=== PATIENT | female | born 1990 | race Caucasian/White ===

== ENCOUNTER 2016-12-16 11:10 | Inpatient (IN) | payer MEDICAID ==
[2016-12-16] VITALS (41 sets, daily range): BP systolic 94–154; BP diastolic 53–93
[~2016-12-16] VITALS: Ht 160 cm; Wt 79.0 kg
[~2016-12-16 11:10] MED LIST: AMOX500C2 PO; CEFP250T2 PO; CYCL10TA9 PO; DOCU100C37 PO; HYDR25CA5 PO; IBUP-1780 PO; KETO75CA PO; NAPR-243 PO; NAPR550T PO; OXYC-465 PO; PREN1TAB39; PRENATAL VITAMINS
--- OUTSIDE RECORDS SUMMARY | 2016-12-16 11:28 | XMS REPORT ---
Author Author SANCHO ALVAREZ Organization [employer] Address Unknown Phone Unavailable Care Team Providers Care Supervisor [facility] Name Role Phone SANCHO ALVAREZ CP Unavailable Allergies No Known Allergies Problems Problem Type Condition ICD-9 Code Onset Dates Condition Status Assessment Asymptomatic bacteriuria during 646.50 Active Problem Asymptomatic bacteriuria during 646.50 Active Problem Supervision of normal subsequent V22.1 Active Problem Rubella non-immune status, antepartum 646.83 Active Assessment Screen for STD (sexually transmitted disease) V74.5 Active Assessment Rubella non-immune status, antepartum 646.83 Active Assessment Supervision of normal subsequent V22.1 Active Assessment Pap test, as part of routine gynecological examination V76.2 Active Medications No Known Medications Procedures Procedure Coding System Code Date CHORIONIC GONADOTROPIN TEST CPT-4 73566 Dec 19, 2014 VENIPUNCT, ROUTINE* CPT-4 20055 Dec 19, 2014 SPECIMEN HANDLING CPT-4 57890 Dec 19, 2014 No Charge CPT-4 43822 Dec 19, 2014 URINE-NO MICRO CPT-4 83054 Dec 19, 2014 INHIBIN A CPT-4 17571 Dec 19, 2014 ALPHA-FETOPROTEIN, SERUM CPT-4 73649 Dec 19, 2014 ASSAY OF ESTRIOL CPT-4 38472 Dec 19, 2014 TRICHOMONAS VAGIN, DIR PROBE CPT-4 09884 Dec 19, 2014 CULTURE, BACTERIA, OTHER CPT-4 30690 Dec 19, 2014 Office Visit, Est Pt., Level 3 CPT-4 61530 Dec 19, 2014 URINE CULTURE/COLONY COUNT CPT-4 44204 Dec 19, 2014 Vital Signs Date/Time: Dec 19, 2014 Temperature 97.3 F Weight 133.9 lbs Height 63 in BMI 23.719 Index Blood Pressure Diastolic 64 mmHg Blood Pressure Systolic 108 mmHg Cardiac Monitoring Heart Rate 74 bpm Results Name Result Date Reference Range Unit Abnormality Flag TETRA SCREEN Summary Purpose [employer] Submission
[2016-12-16] MEDS ORDERED: D5 LR IV SOLUTION 1,000 ML IV SCH (12:24)
[2016-12-16] MEDS ORDERED: LACTATED RINGERS 1,000 ML IV ONE ×2 (12:28→14:17)
[2016-12-16] MEDS ORDERED: EPIDURAL (SUFENTA 0.6MCG/ML BUPIVA 0.125%) 100 ML BAG EPI SCH ×2 (12:30→14:30)
[2016-12-16] MEDS ORDERED: NALOXONE 0.4 MG/ML 1 ML (NARCAN) VIAL IV PRN ×2 (12:30→14:30)
[2016-12-16] MEDS ORDERED: CATHETER FLUSH 10 ML SYR IV PRN (12:30)
[2016-12-16 12:41] LABS: BASOPHILS % (AUTO) 0 % (0-10); EOSINOPHILS # (AUTO) 0.1 10^3/uL (0.0-0.3); EOSINOPHILS % (AUTO) 1 % (0-10); LYMPHOCYTES # (AUTO) 1.5 X 10^3 (1.0-4.0); LYMPHOCYTES % (AUTO) 15 % (12-44); MEAN CORPUSCULAR HEMOGLOBIN 30 PG (25-34); MEAN CORPUSCULAR HGB CONC 32 G/DL (32-36); MEAN CORPUSCULAR VOLUME 92 FL (80-99); MEAN PLATELET VOLUME 10.2 FL (7.4-10.4); MONOCYTES # (AUTO) 0.5 X 10^3 (0.0-1.0); MONOCYTES % (AUTO) 5 % (0-12); NEUTROPHILS # (AUTO) 7.7 X 10^3 (1.8-7.8); NEUTROPHILS % (AUTO) 79 % (42-75); PLATELET COUNT 225 10^3/uL (130-400); RED BLOOD COUNT 3.72 10^6/uL (4.35-5.85); RED CELL DISTRIBUTION WIDTH 14.9 % (10.0-14.5); WHITE BLOOD COUNT 9.8 10^3/uL (4.3-11.0)
[2016-12-16] MEDS ORDERED: LIDOCAINE/EPI 1%-1:200,000 (XYLOCAINE) 30 ML VIAL ONE (12:48)
[2016-12-16] MEDS ORDERED: BUPIVACAINE 0.25% 30 ML (SENSORCAINE) VIAL ONE (12:48)
[2016-12-16] MEDS ORDERED: fentaNYL INJECTION 100 MCG/2 ML AMP ONE ×2 (12:48→14:02)
[2016-12-16] MEDS ORDERED: METOCLOPRAMIDE INJ 10 MG/2 ML (REGLAN) IV PRN (14:30)
[2016-12-16] MEDS ORDERED: ONDANSETRON 4 MG/2 ML (SDV) Z0FRAN IV PRN (14:30)
[2016-12-16] MEDS ORDERED: fentaNYL INJECTION 100 MCG/2 ML AMP INJ ONE (14:30)
[2016-12-16] MEDS ORDERED: diphenhydrAMINE 50 MG/ML INJ (BENADRYL) IV PRN (14:30)
[2016-12-16] MEDS ORDERED: OXYTOCIN/NORMAL SALINE 500 ML IV SCH (14:40)
[2016-12-16] MEDS ORDERED: TETANUS,DIPTH,PERTUSS P/F (BOOSTRIX) 0.5 ML VIAL IM ONE (14:45)
[2016-12-16] MEDS ORDERED: BENZOCAINE/MENTHOL (DERMOPLAST) 56 ML CAN TP PRN (14:45)
[2016-12-16] MEDS ORDERED: MEASLES,MUMPS,RUBELLA 1 EA INJ SC ONE (14:45)
--- NOTE | 2016-12-16 14:46 | History & Physical ---
History and Physical Date Seen by Provider: Dec 16, 2016 Time Seen by Provider: 14:43 this patient is a 26-year-old white female with an EDC of January 16, 2017: 37 weeks gestation. She was seen in clinic where she was found cesar every 2 minutes. Her cervix had dilated to 4 cm from the 2 cm she was 3-4 days ago. She been followed with serial ultrasounds secondary to oligohydramnios. Last DICK was 86 prior to that was 76. She was sent to labor and delivery because of her contractions. GBS culture done on December 05 at 35 weeks and 3 days was negative. Allergies are none Medications are vitamins Past medical history, past surgical history, obstetric history, family history, and social histories are per the antepartum record HEENT exam is normal Neck is supple no lymphadenopathy no thyromegaly Abdomen is gravid soft nontender nondistended Extremities show no clubbing or cyanosis. There is no Homans sign. Pelvic exam in clinic showed a cervix 4-5 similar dilated 50 percent effaced -1 station, recheck now shows cervix 5-6 and dilated -1 station with intact bag is ruptured releasing a small amount of clear fluid. The presentation is vertex. Laboratory Tests 12/16/16 12:10 assessment and plan 7 week gestation in a patient with oligohydramnios mild at this point and in labor. She's now been admitted an epidural and placed amniotomy performed and we are anticipating vaginal delivery fairly shortly 37 weeks with oligohydramnios in spontaneous labor Allergies and Home Medications Allergies Coded Allergies: No Known Drug Allergies (Unverified , 09/23/08) Home Medications Amoxicillin 500 Mg Capsule, 1,000 MG PO BID, #40 Prescribed by: MICKEY FREITAS on 05/20/15 1525 Docusate Sodium 100 Mg Capsule, 100 MG PO BID, #60 Prescribed by: LEXY CRANE on 05/27/15 1013 Ibuprofen 800 Mg Tablet, 800 MG PO Q6H, #60 Prescribed by: LEXY CRANE on 05/27/15 1013 Oxycodone HCl/Acetaminophen 1 Each Tablet, 1-2 TAB PO Q4H PRN for PAIN, #60 Prescribed by: LEXY CRANE on 05/27/15 1013 [ Vitamins] , DAILY, (Reported) LEXY BHATIA MD Dec 16, 2016 2:46 pm
[2016-12-16] MEDS: KETOROLAC 30 MG/ML VIAL IV SCH (20:15)
--- NOTE | 2016-12-16 23:55 | OPERATIVE REPORT ---
DATE OF SERVICE: 12/16/2016 Patient delivered by term spontaneous vaginal delivery of viable female with Apgars of 9 and 9 at 1 and 5 minutes, respectively. Weight is pending at this time. time was 1737. Cord blood gas is pending. Amniotic fluid was port wine consistent with suspicion for placental abruption. The was bulb suctioned on delivery of the head and again on completion of the delivery. The umbilical cord was doubly clamped and father cut the cord. The baby was passed to mom's abdomen. Cord bloods were obtained including an arterial sample for blood gas. That lab is pending. The placenta delivered promptly spontaneously, partially Schultze and partially Martines with adherent clot and a fairly significant amount of blood, extramembranous. The placenta was sent to pathology for permanent section. The cervix, vagina, rectum, perineum were examined. There was an approximately 1.5 cm posterior fourchette perineal laceration that was repaired with a single suture of 3-0 Vicryl in the usual manner. This was repaired onto the epidural. Estimated blood loss for the delivery was less than 150 mL. Sponge and needle counts were correct on completion of the delivery and the repair. The baby remained in the LDR with the mom, who remained in the LDR for recovery. Job ID: [id number] DocumentID: [id number] Dictated Date: 12/16/2016 17:54:50 Certified Forklift Operator Date: 12/16/2016 23:54:42 Dictated By: LEXY BHATIA MD
[2016-12-17 01:58] VITALS: BP 123/76
[2016-12-17] MEDS: CATHETER FLUSH 10 ML SYR IV SCH ×4 (01:58→15:43)
[2016-12-17] MEDS: KETOROLAC 30 MG/ML VIAL IV SCH ×2 (01:58→12:25)
[2016-12-17 05:15] VITALS: BP 125/80
[2016-12-17 07:38] VITALS: BP 132/80
[2016-12-17] MEDS: oxyCODONE/APAP 10/325MG (PERCOCET 10) TABLET PO PRN ×3 (07:38→21:28)
--- NOTE | 2016-12-17 07:51 | Progress Note-Standard ---
Standard Progress Note Progress Notes/Assess & Plan Date Seen by Provider: Dec 17, 2016 Time Seen by Provider: 07:50 Progress/Assessment & Plan patient is without complaint. She is ambulating, voiding, tolerating by mouth well, denies chest pain, denies shortness of breath, denies nausea vomiting, denies headache. Patient considering discharge home today Vital Signs Date Time Temp Pulse Resp B/P (MAP) Pulse Ox O2 Delivery O2 Flow Rate FiO2 12/17/16 07:38 97.7 84 18 132/80 96 12/17/16 05:15 97.8 78 20 125/80 97 Room Air 12/17/16 01:58 97.7 78 18 123/76 98 Room Air 12/16/16 22:00 98.8 88 18 125/79 97 Room Air 12/16/16 20:45 82 20 124/71 Room Air 12/16/16 20:12 98.9 93 18 124/76 Room Air 12/16/16 19:52 94 18 128/76 Room Air 12/16/16 19:32 96 18 119/72 Room Air 12/16/16 19:12 88 18 121/81 Room Air 12/16/16 18:48 99.3 89 122/73 12/16/16 18:33 99.2 85 20 124/73 12/16/16 18:15 99.1 88 20 125/66 12/16/16 18:00 99.0 85 20 127/66 12/16/16 17:45 98.8 98 18 116/59 12/16/16 15:30 74 18 128/81 98 Room Air 12/16/16 15:15 86 16 154/60 99 Room Air 12/16/16 15:05 84 16 115/78 98 Room Air 12/16/16 14:55 74 18 117/76 92 Room Air 12/16/16 14:45 99.0 85 18 106/68 97 Room Air 12/16/16 14:40 78 18 110/67 96 Room Air 12/16/16 14:35 80 18 110/67 93 Room Air 12/16/16 14:30 77 20 103/59 97 Room Air 12/16/16 14:20 80 20 114/57 97 Room Air 12/16/16 14:15 63 20 114/66 92 Room Air 12/16/16 14:10 61 20 100/56 98 Room Air 12/16/16 14:07 60 20 94/53 97 Room Air 12/16/16 14:00 78 18 131/93 99 Room Air 12/16/16 13:45 78 18 127/89 12/16/16 13:30 74 18 127/87 12/16/16 13:15 80 18 124/85 12/16/16 13:00 75 18 122/84 12/16/16 12:50 78 18 127/84 12/16/16 12:30 78 18 114/79 12/16/16 11:30 99.0 77 18 135/84 I & O 12/17/16 07:00 Intake Total 500 ml Balance 500 ml Vital signs are stable. Patient is afebrile. Fundus is firm below the umbilicus nontender. Extremities show clubbing cyanosis. There is no Homans sign. There is some pretibial pitting edema that is normal. Assessment and plan day number 1 status post term spontaneous vaginal delivery doing well. Plan is for discharge home today or tomorrow as desired by patient Final Diagnosis 37 week spontaneous vaginal delivery with placental abruption LEXY BHATIA MD Dec 17, 2016 7:51 am
[2016-12-17] MEDS ORDERED: OXYC-465 PO (07:53)
[2016-12-17] MEDS ORDERED: IBUP-1780 PO (07:53)
[2016-12-17] MEDS ORDERED: DOCU100C37 PO (07:53)
--- NOTE | 2016-12-17 07:54 | Discharge Instructions ---
Discharge Instructions Discharge Medications New, Converted or Re-Newed RX: RX on Chart Patient Instructions Patient Instructions: as directed Return to [facility] For: as directed Activity & Diet Discharge Diet: No Restrictions Activity as Tolerated: No Orders-Post D/C & Referrals Follow Up Appt: Call to make follow up appt. for patient in 4 weeks. Activity Per routine post vaginal delivery instructions. Please call in RX to patient pharmacy. Diet as tolerated Patient may shower or tub bathe as desired. LEXY BHATIA MD Dec 17, 2016 7:54 am
--- NOTE | 2016-12-17 10:38 | Anesthesia-Regional Post-Op ---
Regional Patient Condition Mental Status: Alert, Oriented x3 Circulation: Same as Pre-Op Headache: Absent Sensation: Full Recovery Motor Block: Absent Post Op Complications Complications None Follow Up Care/Instructions Patient Instructions None needed. Anesthesia/Patient Condition Patient is doing well, no complaints, stable vital signs, no apparent adverse anesthesia problems. No complications reported per nursing. ABDULLAHI ROBERTSON CRNA Dec 17, 2016 10:38
[2016-12-17 12:00] VITALS: BP 119/75
[2016-12-17] MEDS: DOCUSATE SODIUM 100 MG (COLACE) CAP PO SCH ×2 (12:28→21:27)
[2016-12-17] MEDS ORDERED: TETANUS,DIPTH,PERTUSS P/F (BOOSTRIX) 0.5 ML VIAL IM ONE (12:33)
[2016-12-17] MEDS: IBUPROFEN 800 MG (MOTRIN) TAB PO SCH ×2 (15:41→21:27)
[2016-12-17 16:00] VITALS: BP 111/76
[2016-12-17 21:28] VITALS: BP 129/83
[2016-12-18 04:09] VITALS: BP 113/68
[2016-12-18] MEDS: IBUPROFEN 800 MG (MOTRIN) TAB PO SCH ×2 (04:09→10:38)
--- NOTE | 2016-12-18 07:05 | Progress Note-Standard ---
Standard Progress Note Progress Notes/Assess & Plan Date Seen by Provider: Dec 18, 2016 Time Seen by Provider: 07:04 Progress/Assessment & Plan patient is without complaint. She is ambulating, voiding, tolerating by mouth well, denies chest pain, denies shortness of breath, denies nausea vomiting, denies headache. Patient considering discharge home today Vital Signs Date Time Temp Pulse Resp B/P (MAP) Pulse Ox O2 Delivery O2 Flow Rate FiO2 12/17/16 07:38 97.7 84 18 132/80 96 12/17/16 05:15 97.8 78 20 125/80 97 Room Air 12/17/16 01:58 97.7 78 18 123/76 98 Room Air 12/16/16 22:00 98.8 88 18 125/79 97 Room Air 12/16/16 20:45 82 20 124/71 Room Air 12/16/16 20:12 98.9 93 18 124/76 Room Air 12/16/16 19:52 94 18 128/76 Room Air 12/16/16 19:32 96 18 119/72 Room Air 12/16/16 19:12 88 18 121/81 Room Air 12/16/16 18:48 99.3 89 122/73 12/16/16 18:33 99.2 85 20 124/73 12/16/16 18:15 99.1 88 20 125/66 12/16/16 18:00 99.0 85 20 127/66 12/16/16 17:45 98.8 98 18 116/59 12/16/16 15:30 74 18 128/81 98 Room Air 12/16/16 15:15 86 16 154/60 99 Room Air 12/16/16 15:05 84 16 115/78 98 Room Air 12/16/16 14:55 74 18 117/76 92 Room Air 12/16/16 14:45 99.0 85 18 106/68 97 Room Air 12/16/16 14:40 78 18 110/67 96 Room Air 12/16/16 14:35 80 18 110/67 93 Room Air 12/16/16 14:30 77 20 103/59 97 Room Air 12/16/16 14:20 80 20 114/57 97 Room Air 12/16/16 14:15 63 20 114/66 92 Room Air 12/16/16 14:10 61 20 100/56 98 Room Air 12/16/16 14:07 60 20 94/53 97 Room Air 12/16/16 14:00 78 18 131/93 99 Room Air 12/16/16 13:45 78 18 127/89 12/16/16 13:30 74 18 127/87 12/16/16 13:15 80 18 124/85 12/16/16 13:00 75 18 122/84 12/16/16 12:50 78 18 127/84 12/16/16 12:30 78 18 114/79 12/16/16 11:30 99.0 77 18 135/84 I & O 12/17/16 07:00 Intake Total 500 ml Balance 500 ml Vital signs are stable. Patient is afebrile. Fundus is firm below the umbilicus nontender. Extremities show clubbing cyanosis. There is no Homans sign. There is some pretibial pitting edema that is normal. Assessment and plan day number 1 status post term spontaneous vaginal delivery doing well. Plan is for discharge home today or tomorrow as desired by patient December 18 2016 Patient is without complaint, she is ambulating, voiding, tolerating fairly well , has good pain control, is requesting discharge home. Vital Signs Date Time Temp Pulse Resp B/P (MAP) Pulse Ox O2 Delivery O2 Flow Rate FiO2 12/18/16 04:09 97.0 75 18 113/68 98 Room Air 12/17/16 21:28 97.8 77 18 129/83 98 Room Air 12/17/16 16:00 97.4 71 18 111/76 95 Room Air 12/17/16 12:00 97.4 71 17 119/75 95 Room Air 12/17/16 07:38 97.7 84 18 132/80 96 vital signs are stable. Patient is afebrile. Fundus firm below the umbilicus and nontender. Extremities show no clubbing cyanosis. There is no Homans sign. Assessment and plan day number 2 status post term spontaneous vaginal delivery doing well. Plan is to discharge home with follow-up in clinic. Final Diagnosis 37 week spontaneous vaginal delivery LEXY BHATIA MD Dec 18, 2016 7:05 am
[2016-12-18 07:42] VITALS: BP 114/70
[2016-12-18] MEDS: DOCUSATE SODIUM 100 MG (COLACE) CAP PO SCH (08:04)
[2016-12-18] MEDS: oxyCODONE/APAP 10/325MG (PERCOCET 10) TABLET PO PRN (08:04)
== END 2016-12-18 13:05 | disposition home or self-care (01) | DRG 774 ==
LOC: LDRP 11:10
PROVIDERS: ADMIT Obstetrics & Gynecology; ATTEND Obstetrics & Gynecology
PROC: 10E0XZZ Delivery of Products of Conception, External Approach (ICD-10-PCS; principal; 2016-12-16)
PROC: 0HQ9XZZ Repair Perineum Skin, External Approach (ICD-10-PCS; 2016-12-16)
DX: O41.03X0 Oligohydramnios, third trimester, not applicable or unspecified (principal); O45.93 Premature separation of placenta, unspecified, third trimester; O70.0 First degree perineal laceration during delivery; Z37.0 Single live birth; Z3A.37 37 weeks gestation of pregnancy; Z23 Encounter for immunization
CPT/HCPCS: 36415; 85025; 86850; 86900; 86901; 90715

== ENCOUNTER → 2017-10-17 | Outpatient (CLI) | payer MEDICAID ==
--- NOTE | 2017-10-17 12:02 | Diagnostic Imaging Report ---
PROCEDURE: CT head without contrast. TECHNIQUE: Multiple contiguous axial images were obtained through the brain without the use of intravenous contrast. INDICATION: Right-sided headache. Comparison is made with prior CT brain from 05/15/2009. The ventricles and sulci are within normal limits. No sulcal effacement, midline shift or hemorrhage is detected. Cisterns are patent. Visualized paranasal sinuses are clear. IMPRESSION: No acute intracranial process is detected. Dictated by: Dictated on workstation # [id number]
== END ==
LOC: RAD 11:31
PROVIDERS: ATTEND Nurse Practitioner Family
DX: G44.52 New daily persistent headache (NDPH) (principal)
CPT/HCPCS: 70450

== ENCOUNTER 2018-12-13 15:57 | Emergency (ER) | payer MEDICAID ==
[~2018-12-13] VITALS: Ht 160 cm; Wt 59.1 kg
[2018-12-13 16:41] LABS: BILIRUBIN,URINE NEGATIVE (NEGATIVE); CLARITY,URINE SLIGHTLY CLOUDY; COLOR,URINE YELLOW; GLUCOSE, URINE (UA) NEGATIVE (NEGATIVE); KETONES,URINE NEGATIVE (NEGATIVE); LEUKOCYTE ESTERASE ,URINE 1+ (NEGATIVE); NITRITE,URINE NEGATIVE (NEGATIVE); PH,URINE 7 (5-9); PROTEIN,URINE 1+ (NEGATIVE); UROBILINOGEN,URINE NORMAL (NORMAL)
[2018-12-13 16:50] LABS: AMORPHOUS SEDIMENT,UR MOD AMOR URATES /LPF; BACTERIA,URINE NEGATIVE /HPF; WBC,URINE 0-2 /HPF
--- NOTE | 2018-12-13 17:33 | ED General ---
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 patient reports having similar episodes before. patient denies anything making pain better or worse. Nursing Sepsis Screen: No Definite Risk Source of Information: Patient, Other (significant other) Exam Limitations: No Limitations History of Present Illness Date Seen by Provider: Dec 13, 2018 Time Seen by Provider: 17:25 Initial Comments 28-year-old female patient presents to the emergency department with complaints of left lateral rib pain radiating into the left upper back/posterior shoulder and into the left neck for proximally 2 hours prior to arrival. Patient now states pain has resolved completely. Reports intermittently pain will cause n umbness and tingling into the left upper extremity. Reports episodes have been occurring since September. She is currently seeing Dr. Putnam for the symptoms. Patient reports that they believe symptoms are related to anxiety and stress, but is working her up for cardiac causes as well. Patient is scheduled for an echocardiogram at [facility] in [place] on Friday. Timing/Duration: Gone Now, Other (intermittent episodes since September) Modifying Factors: worse with Other (Denies modifying factors.) Allergies and Home Medications Allergies Coded Allergies: No Known Drug Allergies (Unverified , 09/23/08) Home Medications Docusate Sodium 100 Mg Capsule, 100 MG PO BID Prescribed by: LEXY CRANE on 12/17/16 075 Ibuprofen 800 Mg Tablet, 800 MG PO Q6H Prescribed by: LEXY CRANE on 12/17/16 075 Oxycodone HCl/Acetaminophen 1 Each Tablet, 1-2 TAB PO Q4H PRN for PAIN Prescribed by: LEXY CRANE on 12/17/16 075 [ Vitamins] , DAILY, (Reported) Patient Home Medication List Home Medication List Reviewed: Yes Review of Systems Review of Systems Constitutional: No chills, No diaphoresis, No dizziness, No fever, No malaise, No weakness EENTM: no symptoms reported Respiratory: No cough, No dyspnea on exertion, No hemoptysis, No orthopnea, No phlegm, No short of breath, No stridor, No wheezing Cardiovascular: No chest pain, No edema, No palpitations, No syncope Gastrointestinal: No abdominal pain, No constipation, No diarrhea, No hematemesis, No heartburn, No loss of appetite, No melena, No nausea, No vomiting Genitourinary: no symptoms reported Musculoskeletal: no symptoms reported (denies current symptoms) Skin: no symptoms reported Psychiatric/Neurological: No Symptoms Reported All Other Systems Reviewed Negative Unless Noted: Yes (Negative excepted noted.) Past Oviumfz-Egytvs-Yjytuy Hx Past Med/Social Hx: Reviewed Nursing Past Med/Soc Hx Patient Social History Alcohol Use: Occasionally Uses Recreational Drug Use: No Smoking Status: Current Everyday Smoker Recent Foreign Travel: No Contact w/Someone Who Travel: No Recent Infectious Disease Expo: No Recent Hopitalizations: No Immunizations Up To Date Tetanus Booster (TDap): Unknown PED Vaccines UTD: Yes Seasonal Allergies Seasonal Allergies: No Past Medical History Surgeries: Yes (METAL PLATE IN SIDE OF JAW.) Respiratory: No Cardiac: No Neurological: No Headaches /Migraines Reproductive Disorders: No Genitourinary: No Gastrointestinal: Yes Gastroesophageal Reflux Musculoskeletal: No Endocrine: No HEENT: No Cancer: No Psychosocial: No Integumentary: No Blood Disorders: No Adverse Reaction/Blood Tranf: No Family Medical History Reviewed Nursing Family Hx Cervical cancer 19 MOTHER No Pertinent Family Hx Physical Exam Vital Signs Vital Signs - First Documented 12/13/18 16:06 Temp 98.2 Pulse 84 Resp 18 B/P (MAP) 116/85 (95) Pulse Ox 97 Capillary Refill : Less Than 3 Seconds Height, Weight, BMI Height: 5'3.00" Weight: 130lbs. 4.0oz. 59.500761kl; 30.9 BMI Method:Stated General Appearance: No Apparent Distress, WD/WN HEENT: PERRL/EOMI, Pharynx Normal Neck: Full Range of Motion, Normal Inspection, Non Tender, Supple; No Tender Lateral, No Tender Midline Respiratory: Chest Non Tender (unable to reproduce pain at the time of exam), Lungs Clear, Normal Breath Sounds, No Accessory Muscle Use, No Respiratory Distress Cardiovascular: Regular Rate, Rhythm, No Edema, No Gallop, No JVD, No Murmur, Normal Peripheral Pulses Gastrointestinal: Normal Bowel Sounds, No Organomegaly, No Pulsatile Mass, Non Tender, Soft Back: Normal Inspection, No Vertebral Tenderness, Muscle Spasm (bilat thoracic paraspinous muscle spasm without tenderness.) Extremity: Normal Capillary Refill, No Calf Tenderness, No Pedal Edema Neurologic/Psychiatric: Alert, Oriented x3, No Motor/Sensory Deficits, Normal 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, 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 Norm as Tested Skin: Normal Color, Warm/Dry Progress/Results/Core Measures Suspected Sepsis Recent Fever Within 48 Hours: No Infection Criteria Present: None New/Unexplained Altered Menta: No Sepsis Screen: No Definite Risk SIRS Temperature:98.2 Pulse: 84 Respiratory Rate: 18 Blood Pressure 116 /85 Mean: 95 Results/Orders Lab Results Laboratory Tests Test 12/13/18 16:31 Range/Units Urine Color YELLOW Urine Clarity SLIGHTLY CLOUDY Urine pH 7 5-9 Urine Specific [place] 1.010 L 1.016-1.022 Urine Protein 1+ H NEGATIVE Urine Glucose (UA) NEGATIVE NEGATIVE Urine Ketones NEGATIVE NEGATIVE Urine Nitrite NEGATIVE NEGATIVE Urine Bilirubin NEGATIVE NEGATIVE Urine Urobilinogen NORMAL NORMAL MG/DL Urine Leukocyte Esterase 1+ H NEGATIVE Urine RBC (Auto) NEGATIVE NEGATIVE Urine RBC NONE /HPF Urine WBC 0-2 /HPF Urine Squamous Epithelial Cells 5-10 /HPF Urine Crystals NONE /LPF Urine Amorphous Sediment MOD TRINA URATES H /LPF Urine Bacteria NEGATIVE /HPF Urine Casts NONE /LPF Urine Mucus NEGATIVE /LPF Urine Culture Indicated NO My Orders Orders - ELVIA PINTO Ua Culture If Indicated (12/13/18 16:13) Urine Bedside (12/13/18 16:13) Vital Signs/I&O 12/13/18 16:06 Temp 98.2 Pulse 84 Resp 18 B/P (MAP) 116/85 (95) Pulse Ox 97 Capillary Refill : Less Than 3 Seconds Blood Pressure Mean: 95 Departure Communication (Admissions) Patient seen and evaluated. Patient denies symptoms at this time. I discussed proceeding with labs, chest x-ray, and EKG versus discharge to home with follow- up early this week with Dr. Putnam. Patient states that she would like to follow- up with Dr. Putnam and proceed with the outpatient echocardiogram as scheduled at [facility] on Friday. I have instructed patient to return immediately to the emergency department for recurrent symptoms or any other concerns. Patient verbalizes understanding and agrees with the treatment plan. Patient case discussed with Dr. Solomon, he agrees with the plan of care. Impression Primary Impression: Chest wall pain Disposition: HOME, SELF-CARE Condition: Improved Departure-Patient Inst. Decision time for Depature: 17:32 Referrals: ELIF PUTNAM MD (PCP/Family) Primary Care Physician Patient Instructions: Chest Pain (DC) Add. Discharge Instructions: All discharge instructions reviewed with patient and/or family. Voiced understanding. Continue orders and instructions as per Dr. Putnam. Tylenol or ibuprofen [id number] as directed for pain if needed. Follow-up with Dr. Putnam this week for recheck. Call Friday morning for an appointment time. Return to the emergency department for worsened symptoms, shortness of air, dizziness, palpitations, numbness, or any other concerns. ELVIA PINTO Dec 13, 2018 17:33
[2018-12-13 17:44] VITALS: BP 120/88
== END 2018-12-13 17:44 | disposition home or self-care (01) ==
LOC: EDUNIT# 15:57 → ER 15:58
DX: R07.89 Other chest pain (principal); G43.909 Migraine, unspecified, not intractable, without status migrainosus; K21.9 Gastro-esophageal reflux disease without esophagitis; F41.9 Anxiety disorder, unspecified; F17.200 Nicotine dependence, unspecified, uncomplicated; Z80.8 Family history of malignant neoplasm of other organs or systems
CPT/HCPCS: 81000; 84703; 99283

== ENCOUNTER 2019-06-08 16:09 | Emergency (ER) | payer MEDICAID ==
[~2019-06-08] VITALS: Ht 160 cm; Wt 76.7 kg
[2019-06-08] MEDS ORDERED: BALO40TA PO (17:16)
--- NOTE | 2019-06-08 17:16 | ED Cough/URI ---
General Chief Complaint: Cough/Cold/Flu Symptoms Stated Complaint: HEADACHE,FEVER,CONGESTED Nursing Triage Note: COUGH CONGESTION HEADACHE ONSET YESTERDAY. DAUGHTER TESTED POS FLU Sepsis Screen: No Definite Risk Source: patient Exam Limitations: no limitations History of Present Illness Date Seen by Provider: Jun 08, 2019 Time Seen by Provider: 17:14 Initial Comments ER with headache cough congestion since yesterday. Daughter had the flu recently. Timing/Duration: yesterday Severity/Quality: moderate Associated Symptoms: cough Allergies and Home Medications Allergies Coded Allergies: No Known Drug Allergies (Unverified , 09/23/08) Home Medications Docusate Sodium 100 Mg Capsule, 100 MG PO BID Prescribed by: LEXY CRANE on 12/17/16752 Ibuprofen 800 Mg Tablet, 800 MG PO Q6H Prescribed by: LEXY CRANE on 12/17/16752 Oxycodone HCl/Acetaminophen 1 Each Tablet, 1-2 TAB PO Q4H PRN for PAIN Prescribed by: LEXY CRANE on 12/17/16752 [ Vitamins] , DAILY, (Reported) Patient Home Medication List Home Medication List Reviewed: Yes Review of Systems Review of Systems Constitutional: see HPI EENTM: see HPI Respiratory: no symptoms reported Cardiovascular: no symptoms reported Genitourinary: no symptoms reported Musculoskeletal: no symptoms reported Skin: no symptoms reported Psychiatric/Neurological: No Symptoms Reported Hematologic/Lymphatic: No Symptoms Reported Past Ibpeorl-Yyahtz-Vrrqvy Hx Patient Social History Alcohol Use: Denies Use Recreational Drug Use: No Smoking Status: Current Everyday Smoker Recent Foreign Travel: No Contact w/Someone Who Travel: No Recent Infectious Disease Expo: No Recent Hopitalizations: No Immunizations Up To Date Tetanus Booster (TDap): Unknown PED Vaccines UTD: Yes Seasonal Allergies Seasonal Allergies: No Past Medical History Surgeries: Yes (METAL PLATE IN SIDE OF JAW.) Respiratory: No Cardiac: No Neurological: No Headaches /Migraines Reproductive Disorders: No Genitourinary: No Gastrointestinal: Yes Gastroesophageal Reflux Musculoskeletal: No Endocrine: No HEENT: No Cancer: No Psychosocial: No Integumentary: No Blood Disorders: No Adverse Reaction/Blood Tranf: No Family Medical History Cervical cancer 19 MOTHER No Pertinent Family Hx Physical Exam Vital Signs - First Documented 06/08/19 16:27 Temp 37.3 Pulse 71 Resp 18 B/P (MAP) 121/78 (92) Capillary Refill : Less Than 3 Seconds Height: 5'3.00" Weight: 130lbs. 4.0oz. 59.133441ef; 29.00 BMI Method:Stated General Appearance: WD/WN, no apparent distress Eyes: Bilateral Eye Normal Inspection, Bilateral Eye PERRL, Bilateral Eye EOMI HEENT: PERRL/EOMI, normal ENT inspection Respiratory: no respiratory distress, no accessory muscle use Gastrointestinal: normal bowel sounds, non tender, soft Neurologic/Psychiatric: alert, oriented x 3 Skin: normal color, warm/dry Progress/Results/Core Measures Suspected Sepsis Recent Fever Within 48 Hours: No Infection Criteria Present: None New/Unexplained Altered Menta: No Sepsis Screen: No Definite Risk SIRS Temperature: Pulse: 71 Respiratory Rate: 18 Blood Pressure 121 /78 Mean: 92 Results/Orders My Orders Orders - SLAVA COOK APRN Influenza A And B Antigens (06/08/19 16:41) Vital Signs/I&O 06/08/19 16:27 Temp 37.3 Pulse 71 Resp 18 B/P (MAP) 121/78 (92) Capillary Refill : Less Than 3 Seconds Blood Pressure Mean: 92 Departure Impression Primary Impression: Influenza Disposition: 01 HOME, SELF-CARE Condition: Stable Departure-Patient Inst. Decision time for Depature: 17:15 Referrals: ELIF PUTNAM MD (PCP/Family) Primary Care Physician Patient Instructions: Flu Add. Discharge Instructions: 1. Return to ER for any concerns 2. Medication as directed 3. All discharge instructions reviewed with patient and/or family. Voiced understanding. Scripts Baloxavir Marboxil (Xofluza) 40 Mg Tablet 40 MG PO ONCE, #1 TAB Prov: SLAVA COOK APRN 06/08/19 Work/School Note: Work Release Form Date Seen in the Emergency Department: Jun 08, 2019 Return to Work: Jun 14, 2019 SLAVA COOK APRN Jun 08, 2019 17:16
[2019-06-08 17:20] VITALS: BP 121/78
== END 2019-06-08 17:21 | disposition home or self-care (01) ==
LOC: EDUNIT# 16:09 → ER 16:10
DX: J11.1 Influenza due to unidentified influenza virus with other respiratory manifestations (principal); F17.200 Nicotine dependence, unspecified, uncomplicated; Z85.41 Personal history of malignant neoplasm of cervix uteri
CPT/HCPCS: 87804

== ENCOUNTER 2020-04-02 16:29 | Emergency (ER) | payer MEDICAID ==
[~2020-04-02] VITALS: Ht 160 cm; Wt 79.4 kg
[~2020-04-02 16:29] MED LIST changes: +BALO40TA PO; -OXYC-465 PO; +OXYC-556 PO
[2020-04-02] MEDS ORDERED: LORazepam INJ 2 MG/ML (ATIVAN) VIAL ONE (16:38)
[2020-04-02] MEDS ORDERED: LORazepam INJ 2 MG/ML (ATIVAN) VIAL IVP PRN (16:45)
--- NOTE | 2020-04-02 16:56 | ED General ---
General Chief Complaint: General Problems/Pain Stated Complaint: NAUSEA/DIZZINESS/L ARM/HAND NUMBNESS Source of Information: Patient Exam Limitations: No Limitations History of Present Illness Date Seen by Provider: Apr 02, 2020 Time Seen by Provider: 16:54 Initial Comments To ER with nausea, dizziness, left arm shaking and numbness. She believes she is having an anxiety attack she states. She has been having these episodes with increasing frequency over the course of the past 1.5 years. Timing/Duration: 1-2 Days Severity: Moderate Associated Systoms: Denies Symptoms Allergies and Home Medications Allergies Coded Allergies: No Known Drug Allergies (Unverified , 09/23/08) Home Medications Baloxavir Marboxil 40 Mg Tablet, 40 MG PO ONCE Prescribed by: SLAVA COOK on 06/08/19 171 Docusate Sodium 100 Mg Capsule, 100 MG PO BID Prescribed by: LEXY CRANE on 12/17/16 075 Ibuprofen 800 Mg Tablet, 800 MG PO Q6H Prescribed by: LEXY CRANE on 12/17/16 075 Oxycodone HCl/Acetaminophen 1 Each Tablet, 1-2 TAB PO Q4H PRN for PAIN Prescribed by: LEXY CRANE on 12/17/16 075 [ Vitamins] , DAILY, (Reported) Patient Home Medication List Home Medication List Reviewed: Yes Review of Systems Review of Systems Constitutional: see HPI EENTM: see HPI Respiratory: no symptoms reported Cardiovascular: no symptoms reported Genitourinary: no symptoms reported Musculoskeletal: no symptoms reported Skin: no symptoms reported Psychiatric/Neurological: No Symptoms Reported Hematologic/Lymphatic: No Symptoms Reported Immunological/Allergic: no symptoms reported Past Wmndhkx-Fjrbgb-Fljipj Hx Patient Social History Recent Foreign Travel: No Contact w/Someone Who Travel: No Recent Hopitalizations: No Immunizations Up To Date Tetanus Booster (TDap): Unknown PED Vaccines UTD: Yes Seasonal Allergies Seasonal Allergies: No Past Medical History Surgeries: Yes (METAL PLATE IN SIDE OF JAW.) Respiratory: No Cardiac: No Neurological: No Headaches /Migraines Reproductive Disorders: No Genitourinary: No Gastrointestinal: Yes Gastroesophageal Reflux Musculoskeletal: No Endocrine: No HEENT: No Cancer: No Psychosocial: No Integumentary: No Blood Disorders: No Adverse Reaction/Blood Tranf: No Family Medical History Cervical cancer 19 MOTHER No Pertinent Family Hx Physical Exam Vital Signs Vital Signs - First Documented 04/02/20 16:30 Temp 36.7 Pulse 90 Resp 18 B/P (MAP) 141/92 (108) Pulse Ox 98 O2 Delivery Room Air Capillary Refill : Height, Weight, BMI Height: 5'3.00" Weight: 130lbs. 4.0oz. [id number]; 29.00 BMI Method:Stated General Appearance: No Apparent Distress, WD/WN, Anxious Eyes: Bilateral Eye Normal Inspection, Bilateral Eye PERRL HEENT: PERRL/EOMI, TMs Normal Neck: Full Range of Motion, Normal Inspection Respiratory: No Accessory Muscle Use, No Respiratory Distress Cardiovascular: Regular Rate, Rhythm, Normal Peripheral Pulses Gastrointestinal: Normal Bowel Sounds, Non Tender, Soft Extremity: Normal Capillary Refill, Normal Inspection Neurologic/Psychiatric: Alert, Oriented x3 Skin: Normal Color, Warm/Dry Progress/Results/Core Measures Suspected Sepsis SIRS Temperature: Pulse: Respiratory Rate: Laboratory Tests 04/02/20 16:30: White Blood Count 8.6 Blood Pressure / Mean: Laboratory Tests 04/02/20 16:30: Creatinine 0.81, Platelet Count 370, Total Bilirubin 0.3 Results/Orders Lab Results Laboratory Tests Test 04/02/20 16:30 Range/Units White Blood Count 8.6 4.3-11.0 10^3/uL Red Blood Count 4.54 3.80-5.11 10^6/uL Hemoglobin 13.7 11.5-16.0 g/dL Hematocrit 42 35-52 % Mean Corpuscular Volume 93 80-99 fL Mean Corpuscular Hemoglobin 30 25-34 pg Mean Corpuscular Hemoglobin Concent 33 32-36 g/dL Red Cell Distribution Width 13.3 10.0-14.5 % Platelet Count 370 130-400 10^3/uL Mean Platelet Volume 9.2 9.0-12.2 fL Immature Granulocyte % (Auto) 0 % Neutrophils (%) (Auto) 62 42-75 % Lymphocytes (%) (Auto) 29 12-44 % Monocytes (%) (Auto) 6 0-12 % Eosinophils (%) (Auto) 2 0-10 % Basophils (%) (Auto) 1 0-10 % Neutrophils # (Auto) 5.4 1.8-7.8 10^3/uL Lymphocytes # (Auto) 2.5 1.0-4.0 10^3/uL Monocytes # (Auto) 0.6 0.0-1.0 10^3/uL Eosinophils # (Auto) 0.1 0.0-0.3 10^3/uL Basophils # (Auto) 0.0 0.0-0.1 10^3/uL Immature Granulocyte # (Auto) 0.0 0.0-0.1 10^3/uL Sodium Level 138 135-145 MMOL/L Potassium Level 3.9 3.6-5.0 MMOL/L Chloride Level 101 98-107 MMOL/L Carbon Dioxide Level 25 21-32 MMOL/L Anion Gap 12 5-14 MMOL/L Blood Urea Nitrogen 10 7-18 MG/DL Creatinine 0.81 0.60-1.30 MG/DL Estimat Glomerular Filtration Rate > 60 BUN/Creatinine Ratio 12 Glucose Level 89 70-105 MG/DL Calcium Level 8.9 8.5-10.1 MG/DL Corrected Calcium 8.5 8.5-10.1 MG/DL Total Bilirubin 0.3 0.1-1.0 MG/DL Aspartate Amino Transf (AST/SGOT) 25 5-34 U/L Alanine Aminotransferase (ALT/SGPT) 19 0-55 U/L Alkaline Phosphatase 69 40-136 U/L Total Protein 7.4 6.4-8.2 GM/DL Albumin 4.5 3.2-4.5 GM/DL My Orders Orders - SLAVA COOK APRN Lorazepam Injection (Ativan Injection) (04/02/20 16:45) Cbc With Automated Diff (04/02/20 16:39) Comprehensive Metabolic Panel (04/02/20 16:39) Ua Culture If Indicated (04/02/20 16:39) Ed Iv/Invasive Line Start (04/02/20 16:39) Thyroid Stimulating Hormone (04/02/20 16:39) Free T4 (Free Thyroxine) (04/02/20 16:39) Lorazepam Injection (Ativan Injection) (04/02/20 16:38) Medications Given in ED Current Medications Medications Dose Ordered Sig/Mariluz Route Start Time Stop Time Status Last Admin Dose Admin Lorazepam 0.5 mg ONCE PRN IVP 04/02/20 16:45 04/02/20 16:45 0.5 MG Vital Signs/I&O 04/02/20 16:30 Temp 36.7 Pulse 90 Resp 18 B/P (MAP) 141/92 (108) Pulse Ox 98 O2 Delivery Room Air Capillary Refill : Departure Impression Primary Impression: Anxiety Disposition: 01 HOME, SELF-CARE Condition: Stable Departure-Patient Inst. Decision time for Depature: 17:29 Referrals: [facility] (PCP/Family) Primary Care Physician Patient Instructions: Anxiety, Adult (DC) Add. Discharge Instructions: 1. Medication as directed 2. Follow-up with your doctor next week for recheck 3. All discharge instructions reviewed with patient and/or family. Voiced understanding. Scripts Venlafaxine HCl (Venlafaxine HCl ER) 75 Mg Tab.er.24 75 MG PO DAILY, #30 TAB 2 Refills Prov: SLAVA COOK APRN 04/02/20 SLAVA COOK APRN Apr 02, 2020 16:56
[2020-04-02 16:57] LABS: BASOPHILS % (AUTO) 1 % (0-10); EOSINOPHILS # (AUTO) 0.1 10^3/uL (0.0-0.3); EOSINOPHILS % (AUTO) 2 % (0-10); HEMATOCRIT 42 % (35-52); HEMOGLOBIN 13.7 g/dL (11.5-16.0); LYMPHOCYTES # (AUTO) 2.5 10^3/uL (1.0-4.0); LYMPHOCYTES % (AUTO) 29 % (12-44); MEAN CORPUSCULAR HEMOGLOBIN 30 pg (25-34); MEAN CORPUSCULAR HGB CONC 33 g/dL (32-36); MEAN CORPUSCULAR VOLUME 93 fL (80-99); MEAN PLATELET VOLUME 9.2 fL (9.0-12.2); MONOCYTES # (AUTO) 0.6 10^3/uL (0.0-1.0); MONOCYTES % (AUTO) 6 % (0-12); NEUTROPHILS # (AUTO) 5.4 10^3/uL (1.8-7.8); NEUTROPHILS % (AUTO) 62 % (42-75); PLATELET COUNT 370 10^3/uL (130-400); WHITE BLOOD COUNT 8.6 10^3/uL (4.3-11.0)
[2020-04-02 17:11] LABS: ALBUMIN 4.5 GM/DL (3.2-4.5); CHLORIDE 101 MMOL/L (98-107); POTASSIUM 3.9 MMOL/L (3.6-5.0); SODIUM 138 MMOL/L (135-145)
[2020-04-02 17:12] LABS: CALCIUM 8.9 MG/DL (8.5-10.1)
[2020-04-02 17:13] LABS: GLUCOSE 89 MG/DL (70-105); TOTAL PROTEIN 7.4 GM/DL (6.4-8.2)
[2020-04-02 17:14] LABS: CARBON DIOXIDE 25 MMOL/L (21-32)
[2020-04-02 17:15] LABS: BILIRUBIN,TOTAL 0.3 MG/DL (0.1-1.0)
[2020-04-02 17:17] LABS: ALKALINE PHOSPHATASE 69 U/L (40-136); CREATININE SERUM 0.81 MG/DL (0.60-1.30); GFR ESTIMATED > 60
[2020-04-02 17:18] LABS: BUN/CREATININE RATIO 12
[2020-04-02 17:20] LABS: ALANINE AMINOTRANSFERASE 19 U/L (0-55)
[2020-04-02] MEDS ORDERED: VENL75TA2 PO (17:30)
[2020-04-02 17:44] LABS: FREE T4 (FREE THYROXINE) 0.85 NG/DL (0.70-1.48)
[2020-04-02] MEDS ORDERED: RX-LORAZEPAM (ATIVAN) 0.5 MG TAB PPK#4 PO STA (18:02)
[2020-04-02 18:10] VITALS: BP 120/84
== END 2020-04-02 18:10 | disposition home or self-care (01) ==
LOC: EDUNIT# 16:29 → ER 16:30
DX: F41.9 Anxiety disorder, unspecified (principal); Z80.49 Family history of malignant neoplasm of other genital organs
CPT/HCPCS: 36415; 80053; 84439; 84443; 85025

== ENCOUNTER 2020-12-18 01:57 | Emergency (ER) | payer MEDICAID ==
[~2020-12-18] VITALS: Ht 160 cm; Wt 79.4 kg
[~2020-12-18 01:57] MED LIST changes: +VENL75TA2 PO
[2020-12-18] MEDS ORDERED: HYDR25CA PO (02:51)
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
[2020-12-18 02:54] LABS: BASOPHILS % (AUTO) 1 % (0-10); EOSINOPHILS # (AUTO) 0.2 10^3/uL (0.0-0.3); EOSINOPHILS % (AUTO) 2 % (0-10); HEMATOCRIT 38 % (35-52); HEMOGLOBIN 12.6 g/dL (11.5-16.0); LYMPHOCYTES # (AUTO) 2.4 10^3/uL (1.0-4.0); LYMPHOCYTES % (AUTO) 30 % (12-44); MEAN CORPUSCULAR HEMOGLOBIN 31 pg (25-34); MEAN CORPUSCULAR HGB CONC 33 g/dL (32-36); MEAN CORPUSCULAR VOLUME 92 fL (80-99); MEAN PLATELET VOLUME 9.8 fL (9.0-12.2); MONOCYTES # (AUTO) 0.5 10^3/uL (0.0-1.0); MONOCYTES % (AUTO) 7 % (0-12); NEUTROPHILS # (AUTO) 4.8 10^3/uL (1.8-7.8); NEUTROPHILS % (AUTO) 61 % (42-75); PLATELET COUNT 300 10^3/uL (130-400); WHITE BLOOD COUNT 7.9 10^3/uL (4.3-11.0)
[2020-12-18 03:00] LABS: POTASSIUM 3.5 MMOL/L (3.6-5.0)
[2020-12-18 03:01] LABS: CALCIUM 9.4 MG/DL (8.5-10.1)
[2020-12-18 03:02] LABS: TOTAL PROTEIN 6.6 GM/DL (6.4-8.2)
[2020-12-18 03:04] LABS: BILIRUBIN,TOTAL 0.4 MG/DL (0.1-1.0)
[2020-12-18 03:06] LABS: CREATININE SERUM 0.78 MG/DL (0.60-1.30)
[2020-12-18] MEDS ORDERED: KETOROLAC 30 MG/ML VIAL IVP ONE (04:15)
[2020-12-18] MEDS ORDERED: ONDANSETRON 4 MG/2 ML (SDV) Z0FRAN IVP ONE (04:15)
[2020-12-18 04:36] VITALS: BP 123/86
== END 2020-12-18 04:36 | disposition home or self-care (01) ==
LOC: EDUNIT# 01:57 → ER 02:00
DX: R51.9 Headache, unspecified (principal); F41.9 Anxiety disorder, unspecified; F17.210 Nicotine dependence, cigarettes, uncomplicated
CPT/HCPCS: 36415; 80053; 84703; 85025; 93005

== ENCOUNTER 2021-01-08 16:16 | Emergency (ER) | payer MEDICAID ==
[~2021-01-08] VITALS: Ht 160 cm; Wt 83.9 kg
[~2021-01-08 16:16] MED LIST changes: +HYDR25CA PO
[2021-01-08 16:46] LABS: BASOPHILS % (AUTO) 0 % (0-10); EOSINOPHILS # (AUTO) 0.1 10^3/uL (0.0-0.3); EOSINOPHILS % (AUTO) 1 % (0-10); HEMATOCRIT 39 % (35-52); HEMOGLOBIN 13.1 g/dL (11.5-16.0); LYMPHOCYTES # (AUTO) 1.5 X 10^3 (1.0-4.0); LYMPHOCYTES % (AUTO) 15 % (12-44); MEAN CORPUSCULAR HEMOGLOBIN 31 pg (25-34); MEAN CORPUSCULAR HGB CONC 33 g/dL (32-36); MEAN CORPUSCULAR VOLUME 92 fL (80-99); MEAN PLATELET VOLUME 9.5 fL (9.0-12.2); MONOCYTES # (AUTO) 0.4 X 10^3 (0.0-1.0); MONOCYTES % (AUTO) 4 % (0-12); NEUTROPHILS # (AUTO) 8.3 X 10^3 (1.8-7.8); NEUTROPHILS % (AUTO) 80 % (42-75); PLATELET COUNT 326 10^3/uL (130-400); WHITE BLOOD COUNT 10.4 10^3/uL (4.3-11.0)
[2021-01-08 16:49] LABS: CALCIUM 9.5 MG/DL (8.5-10.1)
[2021-01-08 16:53] LABS: CREATININE SERUM 0.71 MG/DL (0.60-1.30)
[2021-01-08] MEDS ORDERED: LORazepam INJ 2 MG/ML (ATIVAN) VIAL IVP STA (17:22)
--- NOTE | 2021-01-08 17:23 | ED General ---
General Chief Complaint: Chest Pain Stated Complaint: CHEST PRESSURE/NAUSEA/DIZZINESS Nursing Triage Note: PT AMB TO RM 3 WITH COMPLAINT OF CHEST TIGHTNESS, LIGHT HEADEDNESS, AND FEELING JITTERY. PT STATES HER HEART ALSO FEELS IT IS BEATING FUNNY. STATES HAD SIMILAR EPISODE ABOUT A MONTH AGO AND WAS TREATED FOR ANXIETY. STATES SHE WAS AT [facility] FOR FOUR DAYS AND IS CONCERNED SHE COULD BE DEHYDRATED Source of Information: Patient Exam Limitations: No Limitations History of Present Illness Date Seen by Provider: Jan 08, 2021 Time Seen by Provider: 16:30 Initial Comments Patient is a 30-year-old female who presents to the emergency room with a chief complaint of chest tightness, feeling nauseous and jittery, palpitations. Patient states that she has seen in the emergency department, myself about a month ago diagnosed with anxiety sent home with Vistaril. Followed up with her primary care physician at [facility] and was given a prescription for a medicine to control her heart rate. Sounds like this may have been a beta-taylor. She states that she got this prescription last weekend but has not filled it yet because she went to [facility] over the weekend. She states she did not want to start it while she was out of town. She denies any fevers, chills, cough or congestion. No Covid concerns. No abdominal pain. She is nauseous. No concerns for vaginal infections, dysuria urgency or frequency. She is not having diarrhea. She continues to say that she feels like she is going to pass out. She states she feels lightheaded and like she is getting "tunnel vision". All other review of systems reviewed and negative except as stated. Timing/Duration: 1 Day Severity: Severe Associated Systoms: Chest Pain (Chest "tightness"), Nausea/Vomiting, Shortness of Air Allergies and Home Medications Allergies Coded Allergies: No Known Drug Allergies (Unverified , 09/23/08) Patient Home Medication List Home Medication List Reviewed: Yes Baloxavir Marboxil (Xofluza) 40 Mg Tablet, 40 MG PO ONCE Prescribed by: SLAVA COOK on 06/08/19 501 Docusate Sodium (Docusate Sodium) 100 Mg Capsule, 100 MG PO BID Prescribed by: LEXY CRANE on 12/17/16 9063 Hydroxyzine Pamoate (Vistaril) 25 Mg Capsule, 25 MG PO Q6H PRN for anxiety Prescribed by: KLAUDIA CAGE on 12/18/20 0251 Ibuprofen (Ibuprofen) 800 Mg Tablet, 800 MG PO Q6H Prescribed by: LEXY CRANE on 12/17/16 0753 Ondansetron (Ondansetron Odt) 4 Mg Tab.rapdis, 4 MG PO Q8H Prescribed by: KLAUDIA CAGE on 01/08/21 1816 Oxycodone HCl/Acetaminophen (Oxycodone-Acetaminophen 10-325) 1 Each Tablet, 1-2 TAB PO Q4H PRN for PAIN Prescribed by: LEXY CRANE on 12/17/16 075 Venlafaxine HCl (Venlafaxine HCl ER) 75 Mg Tab.er.24, 75 MG PO DAILY Prescribed by: SLAVA COOK on 04/02/20 1730 [ Vitamins] , DAILY, (Reported) Entered as Reported by: MARGARITA JONES on 05/20/15 1510 Review of Systems Review of Systems Constitutional: see HPI EENTM: no symptoms reported Respiratory: no symptoms reported Cardiovascular: chest pain ("Tightness") Gastrointestinal: nausea Genitourinary: no symptoms reported : No Musculoskeletal: no symptoms reported Skin: no symptoms reported Psychiatric/Neurological: Anxiety All Other Systems Reviewed Negative Unless Noted: Yes Past Tcayany-Lumdys-Cgyppi Hx Patient Social History Tobacco Use?: Yes Tobacco type used: Cigarettes Smoking Status: Current Everyday Smoker Use of E-Cig and/or Vaping dev: No Substance use?: No Alcohol Use?: No Pt feels they are or have been: No Immunizations Up To Date Tetanus Booster (TDap): Unknown PED Vaccines UTD: Yes Seasonal Allergies Seasonal Allergies: No Past Medical History Surgeries: Yes (METAL PLATE IN SIDE OF JAW.) Respiratory: No Cardiac: No Neurological: No Headaches /Migraines Reproductive Disorders: No Genitourinary: No Gastrointestinal: Yes Gastroesophageal Reflux Musculoskeletal: No Endocrine: No HEENT: No Cancer: No Psychosocial: No Integumentary: No Blood Disorders: No Adverse Reaction/Blood Tranf: No Family Medical History Cervical cancer 19 MOTHER No Pertinent Family Hx Physical Exam Vital Signs Vital Signs - First Documented 01/08/21 16:20 Pulse 83 Resp 16 B/P (MAP) 133/94 (107) Pulse Ox 100 O2 Delivery Room Air Capillary Refill : Less Than 3 Seconds Height, Weight, BMI Height: 5'3.00" Weight: 130lbs. 4.0oz. 59.968150qs; 32.00 BMI Method:Stated General Appearance: WD/WN, Anxious Eyes: Bilateral Eye Normal Inspection, Bilateral Eye PERRL, Bilateral Eye EOMI HEENT: PERRL/EOMI Neck: Normal Inspection Respiratory: Lungs Clear, Normal Breath Sounds, No Accessory Muscle Use, No Respiratory Distress Cardiovascular: Regular Rate, Rhythm, Normal Peripheral Pulses Gastrointestinal: Non Tender, Soft Extremity: Normal Capillary Refill, Normal Inspection, Normal Range of Motion, Non Tender, No Calf Tenderness Neurologic/Psychiatric: Alert, Oriented x3, No Motor/Sensory Deficits, Normal Mood/Affect Skin: Normal Color, Warm/Dry Progress/Results/Core Measures Suspected Sepsis SIRS Temperature: Pulse: 83 Respiratory Rate: 16 Laboratory Tests 01/08/21 16:29: White Blood Count 10.4 Blood Pressure 133 /94 Mean: 107 Laboratory Tests 01/08/21 16:29: Creatinine 0.71, Platelet Count 326, Total Bilirubin 0.5 Results/Orders Lab Results Laboratory Tests Test 01/08/21 16:29 Range/Units White Blood Count 10.4 4.3-11.0 10^3/uL Red Blood Count 4.27 3.80-5.11 10^6/uL Hemoglobin 13.1 11.5-16.0 g/dL Hematocrit 39 35-52 % Mean Corpuscular Volume 92 80-99 fL Mean Corpuscular Hemoglobin 31 25-34 pg Mean Corpuscular Hemoglobin Concent 33 32-36 g/dL Red Cell Distribution Width 13.7 10.0-14.5 % Platelet Count 326 130-400 10^3/uL Mean Platelet Volume 9.5 9.0-12.2 fL Immature Granulocyte % (Auto) 0 % Neutrophils (%) (Auto) 80 H 42-75 % Lymphocytes (%) (Auto) 15 12-44 % Monocytes (%) (Auto) 4 0-12 % Eosinophils (%) (Auto) 1 0-10 % Basophils (%) (Auto) 0 0-10 % Neutrophils # (Auto) 8.3 H 1.8-7.8 X 10^3 Lymphocytes # (Auto) 1.5 1.0-4.0 X 10^3 Monocytes # (Auto) 0.4 0.0-1.0 X 10^3 Eosinophils # (Auto) 0.1 0.0-0.3 10^3/uL Basophils # (Auto) 0.0 0.0-0.1 10^3/uL Immature Granulocyte # (Auto) 0.0 0.0-0.1 10^3/uL Sodium Level 139 135-145 MMOL/L Potassium Level 4.0 3.6-5.0 MMOL/L Chloride Level 104 98-107 MMOL/L Carbon Dioxide Level 23 21-32 MMOL/L Anion Gap 12 5-14 MMOL/L Blood Urea Nitrogen 6 L 7-18 MG/DL Creatinine 0.71 0.60-1.30 MG/DL Estimat Glomerular Filtration Rate 96 BUN/Creatinine Ratio 8 Glucose Level 101 70-105 MG/DL Calcium Level 9.5 8.5-10.1 MG/DL Total Bilirubin 0.5 0.1-1.0 MG/DL Direct Bilirubin 0.3 0.0-0.3 MG/DL Indirect Bilirubin 0.2 MG/DL Aspartate Amino Transf (AST/SGOT) 22 5-34 U/L Alanine Aminotransferase (ALT/SGPT) 14 0-55 U/L Alkaline Phosphatase 60 40-136 U/L Total Protein 7.2 6.4-8.2 GM/DL Albumin 4.4 3.2-4.5 GM/DL Lipase 43 8-78 U/L Serum Test, Qualitative NEGATIVE NEGATIVE My Orders Orders - KLAUDIA CAGE MD Ed Iv/Invasive Line Start (01/08/21 16:38) Cbc With Automated Diff (01/08/21 16:38) Basic Metabolic Panel (01/08/21 16:38) Hcg,Qualitative Serum (01/08/21 16:38) Ekg Tracing (01/08/21 16:38) Liver Panel (01/08/21 17:22) Lipase (01/08/21 17:22) Lorazepam Injection (Ativan Injection) (01/08/21 17:22) Ns Iv 1000 Ml (Sodium Chloride 0.9%) (01/08/21 17:30) Vital Signs/I&O 01/08/21 01/08/21 16:20 18:50 Pulse 83 84 Resp 16 18 B/P (MAP) 133/94 (107) 139/91 Pulse Ox 100 99 O2 Delivery Room Air Room Air Capillary Refill : Less Than 3 Seconds Blood Pressure Mean: 107 Progress Note : Time: 16:30 Progress Note patient vomiting. will give 0.5mg of ativan and a liter of fluids. adding LFT with lipase to eval. not a tender abdomen. she still has her GB. 1815 Reevaluated patient, feels much better. Completed fluids and half a milligram of Ativan. She states that she will continue to take her Vistaril as needed at home that I prescribed for her month ago. She is also can start the medication at [facility] prescribed for her. I gave her good return precautions. She verbalized understanding. All questions are sought and answered. Patient is stable for discharge. ECG Initial ECG Impression Date: Jan 08, 2021 Initial ECG Impression Time: 16:25 Initial ECG Rate: 86 Initial ECG Rhythm: Normal Sinus Initial ECG Intervals: Normal Initial ECG Impression: Normal Departure Impression Primary Impression: Nausea and vomiting Qualified Codes: R11.2 - Nausea with vomiting, unspecified Additional Impression: Anxiety Disposition: HOME, SELF-CARE Condition: Stable Departure-Patient Inst. Decision time for Depature: 18:16 Referrals: [facility] (PCP/Family) Primary Care Physician Patient Instructions: Nausea and Vomiting, Adult ED, Anxiety, Adult (DC) Add. Discharge Instructions: Continue to take the Vistaril 1 every 6 hours as needed for palpitations/shortness of breath/anxiety. Start the medication that [facility] prescribed for you last week. Follow-up with [facility] for further evaluation and management. I have sent a prescription for Zofran, and nausea medication to [facility]. 1 every 8 hours as needed for nausea and vomiting. Come back to the emergency department for any new, concerning or emergent complaints. Scripts Ondansetron (Ondansetron Odt) 4 Mg Tab.rapdis 4 MG PO Q8H for nausea, #20 TAB Prov: KLAUDIA CAGE MD 01/08/21 KLAUDIA CAGE MD Jan 08, 2021 17:23
[2021-01-08] MEDS ORDERED: NS IV 1000 ML 1,000 ML IV SCH (17:30)
[2021-01-08 17:36] LABS: ALBUMIN 4.4 GM/DL (3.2-4.5)
[2021-01-08 17:39] LABS: TOTAL PROTEIN 7.2 GM/DL (6.4-8.2)
[2021-01-08 17:41] LABS: BILIRUBIN,TOTAL 0.5 MG/DL (0.1-1.0)
[2021-01-08 17:44] LABS: BILIRUBIN,DIRECT 0.3 MG/DL (0.0-0.3); BILIRUBIN,INDIRECT 0.2 MG/DL
[2021-01-08] MEDS ORDERED: ONDA4TAB11 PO (18:16)
[2021-01-08 18:50] VITALS: BP 139/91
== END 2021-01-08 18:50 | disposition home or self-care (01) ==
LOC: EDUNIT# 16:16 → ER 16:17
DX: R11.2 Nausea with vomiting, unspecified (principal); F41.9 Anxiety disorder, unspecified; F17.210 Nicotine dependence, cigarettes, uncomplicated
CPT/HCPCS: 36415; 80048; 80076; 83690; 84703; 85025; 93005

== ENCOUNTER 2021-04-20 15:53 | Emergency (ER) | payer MEDICAID ==
[~2021-04-20] VITALS: Ht 160 cm; Wt 83.9 kg
[~2021-04-20 15:53] MED LIST changes: +ONDA4TAB11 PO
[2021-04-20 16:19] LABS: BASOPHILS % (AUTO) 1 % (0-10); EOSINOPHILS # (AUTO) 0.1 10^3/uL (0.0-0.3); EOSINOPHILS % (AUTO) 2 % (0-10); HEMATOCRIT 39 % (35-52); LYMPHOCYTES # (AUTO) 1.2 10^3/uL (1.0-4.0); LYMPHOCYTES % (AUTO) 25 % (12-44); MEAN CORPUSCULAR HEMOGLOBIN 31 pg (25-34); MEAN CORPUSCULAR HGB CONC 33 g/dL (32-36); MEAN CORPUSCULAR VOLUME 93 fL (80-99); MONOCYTES # (AUTO) 0.5 10^3/uL (0.0-1.0); MONOCYTES % (AUTO) 10 % (0-12); NEUTROPHILS # (AUTO) 3.1 10^3/uL (1.8-7.8); NEUTROPHILS % (AUTO) 63 % (42-75); PLATELET COUNT 259 10^3/uL (130-400)
[2021-04-20 16:31] LABS: ALBUMIN 4.1 GM/DL (3.2-4.5); CHLORIDE 104 MMOL/L (98-107); SODIUM 137 MMOL/L (135-145)
[2021-04-20 16:32] LABS: CALCIUM 8.5 MG/DL (8.5-10.1)
[2021-04-20 16:34] LABS: GLUCOSE 87 MG/DL (70-105); TOTAL PROTEIN 6.9 GM/DL (6.4-8.2)
[2021-04-20 16:35] LABS: BILIRUBIN,TOTAL 0.2 MG/DL (0.1-1.0); CARBON DIOXIDE 21 MMOL/L (21-32)
--- NOTE | 2021-04-20 16:35 | Diagnostic Imaging Report ---
EXAMINATION: Chest 1 view HISTORY: Chest pain COMPARISON: 08/31/2011. FINDINGS: The lungs are clear without edema or pneumonia. No pleural effusion or pneumothorax. Heart size is normal. IMPRESSION: 1. Clear lungs. Dictated by: Dictated on workstation # [id number]
[2021-04-20 16:37] LABS: ALKALINE PHOSPHATASE 54 U/L (40-136); CREATININE SERUM 0.68 MG/DL (0.60-1.30); GFR ESTIMATED 100
[2021-04-20 16:38] LABS: BUN/CREATININE RATIO 13
[2021-04-20 16:40] LABS: ALANINE AMINOTRANSFERASE 19 U/L (0-55)
[2021-04-20] MEDS ORDERED: LORazepam INJ 2 MG/ML (ATIVAN) VIAL IVP PRN (16:45)
--- NOTE | 2021-04-20 16:50 | ED Chest Pain ---
General Chief Complaint: Chest Pain Stated Complaint: CP,BACK PAIN, LEG PAIN Nursing Triage Note: C/O PAIN IN HER UPPER CHEST THAT STARTED TODAY. EARLIER WHEN SHE WAS EATING SHE BECAME VERY DIZZY AND SHE NOTICED HER PULSE WAS 110 AND HER O2 SATURATION WAS 90%. STATES SHE IS BEING TREATED FOR A NEW DIAGNOSIS OF ANXIETY WITH PROZAC AND HYDROXYZINE. SHE STATES SHE TOOK 600MG PO IBUPROFEN AROUND NOON TODAY FOR HER PAIN. Source: patient Exam Limitations: no limitations (SLAVA COOK APRN) History of Present Illness Date Seen by Provider: Apr 20, 2021 Time Seen by Provider: 16:49 Initial Comments to ER with reports of pain to left upper chest radiates down left arm. She had dizziness associated with this, tachycardia. She is very anxious. She was given Prozac and hydroxyzine by primary care 2 days ago but has not yet started that. Timing/Duration: 1-3 hours Severity/Quality: moderate Location: central Radiation: no radiation Activities at Onset: none ASA po RAILWAY SHUNTER: No NTG SL RAILWAY SHUNTER: No (SLAVA COOK APRN) Allergies and Home Medications Allergies Coded Allergies: No Known Drug Allergies (Unverified , 09/23/08) Patient Home Medication List Home Medication List Reviewed: Yes (SLAVA COOK APRN) Baloxavir Marboxil (Xofluza) 40 Mg Tablet, 40 MG PO ONCE Prescribed by: SLAVA COOK on 06/08/19 171 Docusate Sodium (Docusate Sodium) 100 Mg Capsule, 100 MG PO BID Prescribed by: LEXY CRANE on 12/17/16 0753 Hydroxyzine Pamoate (Vistaril) 25 Mg Capsule, 25 MG PO Q6H PRN for anxiety Prescribed by: KLAUDIA CAGE on 12/18/20 0251 Ibuprofen (Ibuprofen) 800 Mg Tablet, 800 MG PO Q6H Prescribed by: LEXY CRANE on 12/17/16 0753 Ondansetron (Ondansetron Odt) 4 Mg Tab.rapdis, 4 MG PO Q8H Prescribed by: KLAUDIA CAGE on 01/08/21 1816 Oxycodone HCl/Acetaminophen (Oxycodone-Acetaminophen 10-325) 1 Each Tablet, 1-2 TAB PO Q4H PRN for PAIN Prescribed by: LEXY CRANE on 12/17/16 0753 Venlafaxine HCl (Venlafaxine HCl ER) 75 Mg Tab.er.24, 75 MG PO DAILY Prescribed by: SLAVA COOK on 04/02/20 1730 [ Vitamins] , DAILY, (Reported) Entered as Reported by: MARGARITA JONES on 05/20/15 1510 Review of Systems Review of Systems Constitutional: see HPI EENTM: No Symptoms Reported Respiratory: See HPI Cardiovascular: See HPI, Chest Pain Gastrointestinal: No Symptoms Reported Genitourinary: No Symptoms Reported Musculoskeletal: no symptoms reported Skin: no symptoms reported Psychiatric/Neurological: No Symptoms Reported Endocrine: No Symptoms Reported Hematologic/Lymphatic: No Symptoms Reported (SLAVA COOK APRN) Past Cqusjhs-Erdoce-Xzlmfp Hx Patient Social History Tobacco Use?: Yes Tobacco type used: Cigarettes Smoking Status: Current Everyday Smoker Use of E-Cig and/or Vaping dev: No Substance use?: No Alcohol Use?: Yes Alcohol Frequency: Once in a while Pt feels they are or have been: No (SLAVA COOK APRN) Immunizations Up To Date Tetanus Booster (TDap): Unknown PED Vaccines UTD: Yes Influenza Vaccine Up-to-Date: No; Not Current First/Initial COVID19 Vaccinat: DECLINED Second COVID19 Vaccination Odilon: DECLINED (SLAVA COOK APRN) Seasonal Allergies Seasonal Allergies: No (SLAVA COOK APRN) Past Medical History Surgeries: Yes (METAL PLATE IN SIDE OF JAW.) Respiratory: No Cardiac: No Neurological: No Headaches /Migraines Last Menstrual Period: Mar 23, 2021 Reproductive Disorders: No Genitourinary: No Gastrointestinal: Yes Gastroesophageal Reflux Musculoskeletal: No Endocrine: No HEENT: No Cancer: No Psychosocial: No Integumentary: No Blood Disorders: No Adverse Reaction/Blood Tranf: No (SLAVA COOK APRN) Family Medical History Cervical cancer 19 MOTHER No Pertinent Family Hx (SLAVA COOK APRN) Physical Exam Vital Signs Vital Signs - First Documented 04/20/21 15:55 Temp 36.8 Pulse 92 Resp 18 B/P (MAP) 155/99 (117) Pulse Ox 99 (MICKEY ARREDONDO MD) Vital Signs Capillary Refill : Less Than 3 Seconds (SLAVA COOK APRN) Height, Weight, BMI Height: 5'3.00" Weight: 130lbs. 4.0oz. [id number]; 32.00 BMI Method:Stated General Appearance: No Apparent Distress, WD/WN, Anxious HEENT: PERRL/EOMI, TMs Normal Respiratory: Lungs Clear, Normal Breath Sounds, No Accessory Muscle Use, No Respiratory Distress Cardiovascular: Regular Rate, Rhythm, Normal Peripheral Pulses Gastrointestinal: Normal Bowel Sounds, Non Tender, Soft Extremity: Normal Capillary Refill, Normal Inspection Neurologic/Psychiatric: Alert, Oriented x3 Skin: Normal Color, Warm/Dry (SLAVA COOK APRN) Progress/Results/Core Measures Results/Orders Lab Results Laboratory Tests Test 04/20/21 16:10 Range/Units White Blood Count 5.0 4.3-11.0 10^3/uL Red Blood Count 4.24 3.80-5.11 10^6/uL Hemoglobin 13.0 11.5-16.0 g/dL Hematocrit 39 35-52 % Mean Corpuscular Volume 93 80-99 fL Mean Corpuscular Hemoglobin 31 25-34 pg Mean Corpuscular Hemoglobin Concent 33 32-36 g/dL Red Cell Distribution Width 13.4 10.0-14.5 % Platelet Count 259 130-400 10^3/uL Mean Platelet Volume 9.0 9.0-12.2 fL Immature Granulocyte % (Auto) 0 % Neutrophils (%) (Auto) 63 42-75 % Lymphocytes (%) (Auto) 25 12-44 % Monocytes (%) (Auto) 10 0-12 % Eosinophils (%) (Auto) 2 0-10 % Basophils (%) (Auto) 1 0-10 % Neutrophils # (Auto) 3.1 1.8-7.8 10^3/uL Lymphocytes # (Auto) 1.2 1.0-4.0 10^3/uL Monocytes # (Auto) 0.5 0.0-1.0 10^3/uL Eosinophils # (Auto) 0.1 0.0-0.3 10^3/uL Basophils # (Auto) 0.0 0.0-0.1 10^3/uL Immature Granulocyte # (Auto) 0.0 0.0-0.1 10^3/uL D-Dimer <= 0.27 0.00-0.49 UG/ML Sodium Level 137 135-145 MMOL/L Potassium Level 4.0 3.6-5.0 MMOL/L Chloride Level 104 98-107 MMOL/L Carbon Dioxide Level 21 21-32 MMOL/L Anion Gap 12 5-14 MMOL/L Blood Urea Nitrogen 9 7-18 MG/DL Creatinine 0.68 0.60-1.30 MG/DL Estimat Glomerular Filtration Rate 100 BUN/Creatinine Ratio 13 Glucose Level 87 70-105 MG/DL Calcium Level 8.5 8.5-10.1 MG/DL Corrected Calcium 8.4 L 8.5-10.1 MG/DL Total Bilirubin 0.2 0.1-1.0 MG/DL Aspartate Amino Transf (AST/SGOT) 21 5-34 U/L Alanine Aminotransferase (ALT/SGPT) 19 0-55 U/L Alkaline Phosphatase 54 40-136 U/L Troponin I < 0.028 <0.028 NG/ML C-Reactive Protein High Sensitivity 0.28 0.00-0.50 MG/DL Total Protein 6.9 6.4-8.2 GM/DL Albumin 4.1 3.2-4.5 GM/DL Serum Test, Qualitative NEGATIVE NEGATIVE (MICKEY ARREDONDO MD) Vital Signs/I&O 04/20/21 04/20/21 15:55 17:51 Temp 36.8 Pulse 92 82 Resp 18 18 B/P (MAP) 155/99 (117) 125/89 Pulse Ox 99 98 (MICKEY ARREDONDO MD) Blood Pressure Mean: 117 Departure Communication (Admissions) 1761-chest x-ray is clear, she is feeling a bit better after the Ativan. Instructed her to go home and fill her Prozac and hydroxyzine. (SLAVA COOK APRN) Impression Primary Impression: Anxiety Disposition: 01 HOME, SELF-CARE Condition: Stable Departure-Patient Inst. Decision time for Depature: 16:50 (SLAVA COOK APRN) Referrals: [facility] (PCP/Family) Primary Care Physician Patient Instructions: Anxiety, Adult (DC) Add. Discharge Instructions: All discharge instructions reviewed with patient and/or family. Voiced unde rstanding. ATTENDING PHYSICIAN NOTE: I was physically present as attending physician in the emergency department during the care of this patient, but I was not directly involved in the decision making or delivery of care for this patient. (MICKEY ARREDONDO MD) SLAVA COOK APRN Apr 20, 2021 16:50 MICKEY ARREDONDO MD Apr 23, 2021 06:53
[2021-04-20 17:51] VITALS: BP 125/89
== END 2021-04-20 17:51 | disposition home or self-care (01) ==
LOC: EDUNIT# 15:53 → ER 15:54
DX: F41.9 Anxiety disorder, unspecified (principal); F17.210 Nicotine dependence, cigarettes, uncomplicated
CPT/HCPCS: 36415; 71045; 80053; 84484; 84703; 85025; 85379; 86141; 93005

== ENCOUNTER 2021-04-22 16:50 | Emergency (ER) | payer MEDICAID ==
--- NOTE | 2021-04-22 17:23 | ED General ---
General Chief Complaint: Psych/Social Disorder Stated Complaint: TOOK RX/RASH/DIZZINESS Source of Information: Patient Exam Limitations: No Limitations (JUNIE ANDERSON MED STUDENT) History of Present Illness Date Seen by Provider: Apr 22, 2021 Time Seen by Provider: 17:10 Initial Comments This is a 31 YO female presenting to the ED with suspected medication reaction. Pt states today she was having an anxiety attack and took a newly prescribed hydroxyzine at 3 pm this afternoon. She states that about an hour and a half later, she noticed a rash on her lower abdomen and upper thighs that correlated with where her stretch abdul are. States the rash is not itchy or painful, just noticed it when she was getting in the shower. Denies shortness of breath or any respiratory complaints. Did not take any Benadryl or other OTC medications for her symptoms. No recent illness. Severity: Mild Associated Systoms: No Cough, No Shortness of Air (JUNIE ANDERSON MED STUDENT) Allergies and Home Medications Allergies Coded Allergies: No Known Drug Allergies (Unverified , 09/23/08) Patient Home Medication List Home Medication List Reviewed: Yes (KLAUDIA CAGE MD) Baloxavir Marboxil (Xofluza) 40 Mg Tablet, 40 MG PO ONCE Prescribed by: SLAVA COOK on 06/08/191715 Docusate Sodium (Docusate Sodium) 100 Mg Capsule, 100 MG PO BID Prescribed by: LEXY CRANE on 12/17/16 075 Hydroxyzine Pamoate (Vistaril) 25 Mg Capsule, 25 MG PO Q6H PRN for anxiety Prescribed by: KLAUDIA CAGE on 12/18/20 0251 Ibuprofen (Ibuprofen) 800 Mg Tablet, 800 MG PO Q6H Prescribed by: LEXY CRANE on 12/17/16 075 Ondansetron (Ondansetron Odt) 4 Mg Tab.rapdis, 4 MG PO Q8H Prescribed by: KLAUDIA CAGE on 01/08/21 1816 Oxycodone HCl/Acetaminophen (Oxycodone-Acetaminophen 10-325) 1 Each Tablet, 1-2 TAB PO Q4H PRN for PAIN Prescribed by: LEXY CRANE on 12/17/16 075 Venlafaxine HCl (Venlafaxine HCl ER) 75 Mg Tab.er.24, 75 MG PO DAILY Prescribed by: SLAVA COOK on 04/02/20 1730 [ Vitamins] , DAILY, (Reported) Entered as Reported by: MARGARITA JONES on 05/20/15 1510 Review of Systems Review of Systems Constitutional: No chills, No fever EENTM: No blurred vision, No double vision Respiratory: No dyspnea on exertion, No wheezing Cardiovascular: No edema, No palpitations Gastrointestinal: No abdominal pain, No diarrhea Genitourinary: no symptoms reported Musculoskeletal: No back pain, No joint pain Skin: see HPI Psychiatric/Neurological: Anxiety; Denies Headache Hematologic/Lymphatic: No Symptoms Reported Immunological/Allergic: no symptoms reported (JUNIE ANDERSON) All Other Systems Reviewed Negative Unless Noted: Yes (Negative excepted noted.) (JUNIE ANDERSON) Past Xgjuoof-Djnaqr-Rqfdoq Hx Patient Social History Tobacco Use?: Yes Tobacco type used: Cigarettes Substance use?: No Alcohol Use?: Yes Alcohol Frequency: Rarely (JUNIE ANDERSON) Immunizations Up To Date Tetanus Booster (TDap): Unknown PED Vaccines UTD: Yes First/Initial COVID19 Vaccinat: DECLINED Second COVID19 Vaccination Odilon: DECLINED (JUNIE ANDERSON) Seasonal Allergies Seasonal Allergies: No (JUNIE ANDERSON) Past Medical History Surgeries: Yes (METAL PLATE IN SIDE OF JAW.) Respiratory: No Cardiac: No Neurological: No Headaches /Migraines Reproductive Disorders: No Genitourinary: No Gastrointestinal: Yes Gastroesophageal Reflux Musculoskeletal: No Endocrine: No HEENT: No Cancer: No Psychosocial: No Integumentary: No Blood Disorders: No Adverse Reaction/Blood Tranf: No (JUNIE ANDERSON) Family Medical History Cervical cancer 19 MOTHER No Pertinent Family Hx (JUNIE ANDERSON) Physical Exam Vital Signs Capillary Refill : (JUNIE ANDERSON STUDENT) Height, Weight, BMI Height: 5'3.00" Weight: 130lbs. 4.0oz. 59.039362om; 32.00 BMI Method:Stated General Appearance: No Apparent Distress, WD/WN Eyes: Bilateral Eye Normal Inspection, Bilateral Eye PERRL, Bilateral Eye EOMI HEENT: PERRL/EOMI; No Scleral Icterus (L), No Scleral Icterus (R) Neck: Non Tender, Supple Respiratory: Lungs Clear, Normal Breath Sounds, No Accessory Muscle Use, No Respiratory Distress Cardiovascular: Regular Rate, Rhythm, No Edema Gastrointestinal: Non Tender, Soft; No Distended Back: Normal Inspection; No Decreased Range of Motion Extremity: Normal Inspection, Normal Range of Motion Neurologic/Psychiatric: Alert, Oriented x3, No Motor/Sensory Deficits, Normal Mood/Affect Skin: Warm/Dry, Other (flat, blotchy, contiguous, blanchable rash to lower abdomen below umbilicus; no vesicles, pustules, fluctuance, crusting, or drainage) (JUNIE ANDERSON MED STUDENT) Progress/Results/Core Measures Suspected Sepsis SIRS Temperature: Pulse: Respiratory Rate: Blood Pressure / Mean: (JUNIE ANDERSON MED STUDENT) Results/Orders Vital Signs/I&O Capillary Refill : (JUNIE ANDERSON STUDENT) Progress Note : Time: 17:35 Progress Note 31-year-old female presents with a chief complaint of blanching macular rash to the anterior abdomen noted shortly after taking a dose of Vistaril today. Patient states today was actually the first time she had ever taken it even though I have prescribed to her in the past. Patient states that she also started taking Prozac yesterday. She took a dose of Prozac at noon today as well. She states she felt like she had a little bit of rash on her upper thighs on the left. No itching. No nausea. No swelling in her mouth or shortness of breath. Symptoms seem to be improving. Complains of anxiety currently with some dizziness, "feeling cold" and palpitations. Has follow-up with her [facility] provider scheduled in 6 weeks to evaluate her Prozac dosing. No other complaints of recent illness. Recommendations to discontinue Vistaril, use a little Benadryl as needed. Return precautions given. (KLAUDIA CAGE MD) Departure Impression Primary Impression: Panic attack Additional Impression: Medication adverse effect Qualified Codes: T50.905A - Adverse effect of unspecified drugs, medicaments and biological substances, initial encounter Disposition: 01 HOME, SELF-CARE Condition: Stable Departure-Patient Inst. Decision time for Depature: 17:32 (KLAUDIA CAGE MD) Referrals: [facility] (PCP) Primary Care Physician BLAISE RANDLE APRN (Family) Primary Care Physician Patient Instructions: Anxiety, Adult ED, MEDICATION REACTION Add. Discharge Instructions: Stop taking the Vistaril/hydroxyzine. Continue the prozac. You can take a benadryl for anxiety every 6 hours as needed. Follow up with your primary care doctor. Return to the ER for any new, concerning or emergent complaints, Verification and Attestation of Medical Student E/M Service A medical student performed and documented this service in my presence. I reviewed and verified all information documented by the medical student and made modifications to such information, when appropriate. I personally performed the physical exam and medical decision making. Klaudia Cage, Apr 22, 2021,17:36 (KLAUDIA CAGE MD) JUNIE ANDERSON MED STUDENT Apr 22, 2021 17:23 KLAUDIA CAGE MD Apr 22, 2021 17:36
== END 2021-04-22 17:45 | disposition home or self-care (01) ==
LOC: EDUNIT# 16:50 → ER 16:52
DX: F41.0 Panic disorder [episodic paroxysmal anxiety] (principal); T43.595A Adverse effect of other antipsychotics and neuroleptics, initial encounter; Z72.0 Tobacco use
CPT/HCPCS: 99281

== ENCOUNTER 2021-04-25 13:41 | Emergency (ER) | payer MEDICAID ==
[~2021-04-25] VITALS: Ht 160 cm; Wt 83.9 kg
[2021-04-25] MEDS ORDERED: LACTATED RINGERS 1,000 ML IV ONE (15:45)
[2021-04-25 15:50] VITALS: BP 147/102
[2021-04-25 15:52] VITALS: BP 146/98
[2021-04-25 15:59] VITALS: BP 143/103
[2021-04-25] MEDS ORDERED: IOHEXOL 350 MG/ML 100 ML (OMNIPAQUE 350) VIAL IV ONE (16:15)
[2021-04-25] MEDS ORDERED: NS 100 ML (IVPB) BAG IV ONE (16:15)
[2021-04-25] MEDS ORDERED: HOLD METFORMIN - RECEIVED CONTRAST 20 ML VIAL IV SCH (16:15)
--- NOTE | 2021-04-25 16:50 | Diagnostic Imaging Report ---
CLINICAL INDICATION: Patient with dizziness and vision issues since Friday. Patient has left-sided head/neck pain. Patient has metal plate in jaw. EXAMS: 1: Head CT with and without IV contrast. Auto Exposure Controls were utilized during the CT exam to meet ALARA standards for radiation dose reduction. 2: CT angiogram of the head and neck performed with 75 cc of Omnipaque 350 IV contrast. Sagittal and coronal MIP reformations were created for better visualization of vascular anatomy. CT angiogram was post-processed using RAPID LVO detection to include quantitative measurements of cerebral blood flow and automated results notification to the stroke and/or neurointerventional team. COMPARISON: Head CT without contrast dated 10/17/2017. FINDINGS: HEAD CT: There is no evidence of acute cerebral infarct, intracranial hemorrhage, or gross mass effect. There is no abnormal IV contrast enhancement. The brain parenchymal volume appears appropriate for patient's age. There is normal meneses-white matter distinction. There is no significant midline shift or herniation. There is no evidence of hydrocephalus. The basal cisterns are unremarkable. The skull, extracranial soft tissue, and orbits are unremarkable. There is mild mucosal thickening involving the right frontal recess region. There is a small area of consolidation involving the right mastoid air cells. CT ANGIOGRAM: There is dense contrast bolus within the left subclavian vein, innominate vein, and superior vena cava which causes streak artifact obscuring portions of the aortic arch and proximal great vessels. 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 The brachiocephalic artery and bilateral subclavian arteries are patent. The bilateral common carotid arteries, cervical ICA, and bilateral ECA are patent. The bilateral petrous, cavernous, and supraclinoid ICA are patent. The bilateral ACAs and distal branches and bilateral MCAs and distal branches are patent. The bilateral cervical ICA are patent. The bilateral PICA, intradural vertebral arteries, basilar artery, bilateral superior cerebellar arteries, and bilateral highway maintenance supervisor are patent. The dural venous sinuses are patent. The neck soft tissue structures show no significant abnormality. Visualized upper lung ambrosio are clear. Likely bone island involving the posterior aspect of the T3 vertebra. IMPRESSION: 1: Unremarkable CT scan of the brain. 2: Unremarkable CT angiogram of the [place] and neck. Results of this report were discussed with Dr. Urena via the telephone on 04/25/2021 at 1640 hours. Dictated by: Dictated on workstation # [id number]
--- NOTE | 2021-04-25 17:08 | ED General ---
General Chief Complaint: Dizziness/Syncope Stated Complaint: LIGHTHEADED,BLURRED VISION Nursing Triage Note: PT AMBULATORY TO ER. PT C/O LIGHT-HEADED AND DIZZY SINCE FRIDAY. PT REPORTS SHE WAS SEEN IN ER ON FRIDAY FOR SIMILAR S/S. REPORTS WAS RECENTLY STARTED ON PROZAC AND HYDROXYZINE, THOUGHT SHE WAS HAVING AN ADVERSE RXN TO IT. PT REPORTS THIS MORNING SHE WAS 'FOGGY' HEADED AND C/O PAIN TO L SIDE OF HEAD/NECK. PT REPORTS INTERMITTENT BLURRED VISION. Source of Information: Patient, Old Records Exam Limitations: No Limitations History of Present Illness Date Seen by Provider: Apr 25, 2021 Time Seen by Provider: 14:50 Initial Comments This 31-year-old young lady presents to the emergency room for her third visit to the ER in 6 days. She reports feeling disoriented and lightheaded starting around 0500 today. She also has a new symptom of headache around the left brow region and radiating down into her neck and shoulder. This is new to her. She also reports feeling disoriented as though she were in a postictal state. She states she has had suspected seizures in the past but none have demonstrated convulsions or incontinence. She has had an EEG in the past showing no evidence of epileptic activity. She has had multiple episodes in the past of syncope of unknown cause. Along with her dizziness she also reports recent onset of intermittent blurry vision and some mild tremors. She is rather anxious today. She denies drug or alcohol use. Her 2 prior visits over the past week resulted in fairly thorough work-ups with no significant findings identified. She has been treated for anxiety. She recently stopped hydroxyzine as she developed a rash after starting hydroxyzine and Prozac. Rash resolved after stopping hydroxyzine. She did not take the Prozac who is boarded for fear of it being the cause of her symptoms. Allergies and Home Medications Allergies Coded Allergies: No Known Drug Allergies (Unverified , 09/23/08) Patient Home Medication List Home Medication List Reviewed: Yes Baloxavir Marboxil (Xofluza) 40 Mg Tablet, 40 MG PO ONCE Prescribed by: SALVA COOK on 06/08/19 7929 Docusate Sodium (Docusate Sodium) 100 Mg Capsule, 100 MG PO BID Prescribed by: LEXY CRANE on 12/17/16 0753 Hydroxyzine Pamoate (Vistaril) 25 Mg Capsule, 25 MG PO Q6H PRN for anxiety Prescribed by: KLAUDIA CAGE on 12/18/20 0251 Ibuprofen (Ibuprofen) 800 Mg Tablet, 800 MG PO Q6H Prescribed by: LEXY CRANE on 12/17/16 075 Ondansetron (Ondansetron Odt) 4 Mg Tab.rapdis, 4 MG PO Q8H Prescribed by: KLAUDIA CAGE on 01/08/21 1816 Oxycodone HCl/Acetaminophen (Oxycodone-Acetaminophen 10-325) 1 Each Tablet, 1-2 TAB PO Q4H PRN for PAIN Prescribed by: LEXY CRANE on 12/17/16 075 Venlafaxine HCl (Venlafaxine HCl ER) 75 Mg Tab.er.24, 75 MG PO DAILY Prescribed by: SLAVA COOK on 04/02/20 1730 [ Vitamins] , DAILY, (Reported) Entered as Reported by: MARGARITA JONES on 05/20/15 1510 Review of Systems Review of Systems Constitutional: see HPI EENTM: no symptoms reported Respiratory: see HPI Cardiovascular: see HPI Gastrointestinal: no symptoms reported Genitourinary: no symptoms reported : Yes Musculoskeletal: no symptoms reported, see HPI Skin: see HPI Psychiatric/Neurological: See HPI Hematologic/Lymphatic: No Symptoms Reported Immunological/Allergic: no symptoms reported Past Pwagdki-Vffpcx-Kyambh Hx Patient Social History Tobacco Use?: Yes Tobacco type used: Cigarettes Smoking Status: Current Everyday Smoker Use of E-Cig and/or Vaping dev: No Substance use?: Yes Substance type: Marijuana Alcohol Use?: Yes Alcohol Frequency: Once in a while Pt feels they are or have been: No Immunizations Up To Date Tetanus Booster (TDap): Unknown PED Vaccines UTD: Yes First/Initial COVID19 Vaccinat: DECLINED Second COVID19 Vaccination Odilon: DECLINED Seasonal Allergies Seasonal Allergies: No Past Medical History Surgeries: Yes (METAL PLATE IN SIDE OF JAW.) Respiratory: No Cardiac: No Neurological: Yes Headaches /Migraines : No Reproductive Disorders: No Genitourinary: No Gastrointestinal: Yes Gastroesophageal Reflux Musculoskeletal: No Endocrine: No HEENT: No Cancer: No Psychosocial: No Integumentary: No Blood Disorders: No Adverse Reaction/Blood Tranf: No Family Medical History Cervical cancer 19 MOTHER No Pertinent Family Hx Physical Exam Vital Signs Vital Signs - First Documented 04/25/21 14:11 Temp 36.3 Pulse 71 Resp 18 B/P (MAP) 148/110 (123) Pulse Ox 97 O2 Delivery Room Air Capillary Refill : Height, Weight, BMI Height: 5'3.00" Weight: 130lbs. 4.0oz. [id number]; 32.00 BMI Method:Stated General Appearance: No Apparent Distress, Anxious HEENT: PERRL/EOMI, TMs Normal, Normal ENT Inspection, Pharynx Normal Neck: Normal Inspection, Other (Muscle tension and tenderness in the paraspinous muscles of the cervical spine, left greater than right) Respiratory: Lungs Clear, Normal Breath Sounds, No Accessory Muscle Use, No Respiratory Distress Cardiovascular: Regular Rate, Rhythm, No Edema, No Murmur, Normal Peripheral Pulses Gastrointestinal: Normal Bowel Sounds, Non Tender, Soft Extremity: Normal Capillary Refill, Normal Inspection, No Calf Tenderness, No Pedal Edema Neurologic/Psychiatric: Alert, Oriented x3, No Motor/Sensory Deficits, Normal Mood/Affect, 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 Slight tremor identified. Anxious.) Skin: Normal Color, Warm/Dry Progress/Results/Core Measures Suspected Sepsis SIRS Temperature: Pulse: 87 Respiratory Rate: 18 Blood Pressure 143 /103 Mean: 116 Results/Orders Lab Results Laboratory Tests Test 04/25/21 14:20 Range/Units Serum Test, Qualitative NEGATIVE NEGATIVE My Orders Orders - MICKEY ARREDONDO MD Orthostatic Vital Signs (Adult (04/25/21 15:43) Lactated Ringers (Lr 1000 Ml Iv Solution (04/25/21 15:45) Ct Angio Head/Neck (04/25/21 15:43) Monitor-Rhythm Ecg Trace Only (04/25/21 15:43) Hcg,Qualitative Serum (04/25/21 15:43) Iohexol Injection (Omnipaque 350 Mg/Ml 1 (04/25/21 16:15) Received Contrast (Hold Metformin- Contr (04/25/21 16:15) Ns (Ivpb) (Sodium Chloride 0.9% Ivpb Bag (04/25/21 16:15) Medications Given in ED Current Medications Medications Dose Ordered Sig/Mariluz Route Start Time Stop Time Status Last Admin Dose Admin Iohexol 100 ml ONCE ONCE IV 04/25/21 16:15 04/25/21 16:16 DC 04/25/21 16:17 75 ML Lactated Ringer's 1,000 ml @ 0 mls/hr Q0M ONCE IV 04/25/21 15:45 04/25/21 15:47 DC 04/25/21 15:55 0 MLS/HR Sodium Chloride 100 ml ONCE ONCE IV 04/25/21 16:15 04/25/21 16:16 DC 04/25/21 16:17 80 ML Vital Signs/I&O 04/25/21 04/25/21 04/25/21 04/25/21 14:11 14:32 15:04 15:40 Temp 36.3 Pulse 71 73 71 69 Resp 18 18 18 B/P (MAP) 148/110 (123) 136/95 136/101 155/114 Pulse Ox 97 97 97 97 O2 Delivery Room Air Room Air Room Air 04/25/21 04/25/21 04/25/21 04/25/21 15:50 15:52 15:59 17:15 Pulse 66 74 87 66 Resp 18 B/P (MAP) 147/102 (117) 146/98 (114) 134/94 143/103 (116) Pulse Ox 99 Capillary Refill : Blood Pressure Mean: 116 Progress Note : Progress Note Orthostatic blood pressures were unremarkable. CT angiogram of the head and neck was offered. Risks and benefits discussed and patient elected to proceed with CT. She had thorough work-up on her prior 2 visits to the ER, so further work-up with labs etc. was not deemed necessary to repeat. CT angiogram was unremarkable. Patient was offered Toradol and Norflex for the muscle tension in her neck to help treat her headache. She declined. Diagnostic Imaging Diagonstic Imaging: CT Plain Films/CT/US/NM/MRI: chest Comments CT angiogram viewed by me and discussed with radiologist. See report below: NAME: MAHI MCFARLAND [facility] REC#: [id number] PT STATUS: DEP ER : 1990 PHYSICIAN: MICKEY ARREDONDO MD ADMIT DATE: 12/22/21/ER Signed Date of Exam:04/25/21 CT ANGIO HEAD/NECK CLINICAL INDICATION: Patient with dizziness and vision issues since Friday. Patient has left-sided head/neck pain. Patient has metal plate in jaw. EXAMS: 1: Head CT with and without IV contrast. Auto Exposure Controls were utilized during the CT exam to meet ALARA standards for radiation dose reduction. 2: CT angiogram of the head and neck performed with 75 cc of Omnipaque 350 IV contrast. Sagittal and coronal MIP reformations were created for better visualization of vascular anatomy. CT angiogram was post-processed using RAPID LVO detection to include quantitative measurements of cerebral blood flow and automated results notification to the stroke and/or neurointerventional team. COMPARISON: Head CT without contrast dated 10/17/2017. FINDINGS: HEAD CT: There is no evidence of acute cerebral infarct, intracranial hemorrhage, or gross mass effect. There is no abnormal IV contrast enhancement. The brain parenchymal volume appears appropriate for patient's age. There is normal meneses-white matter distinction. There is no significant midline shift or herniation. There is no evidence of hydrocephalus. The basal cisterns are unremarkable. The skull, extracranial soft tissue, and orbits are unremarkable. There is mild mucosal thickening involving the right frontal recess region. There is a small area of consolidation involving the right mastoid air cells. CT ANGIOGRAM: There is dense contrast bolus within the left subclavian vein, innominate vein, and superior vena cava which causes streak artifact obscuring portions of the aortic arch and proximal great vessels. 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 The brachiocephalic artery and bilateral subclavian arteries are patent. The bilateral common carotid arteries, cervical ICA, and bilateral ECA are patent. The bilateral petrous, cavernous, and supraclinoid ICA are patent. The bilateral ACAs and distal branches and bilateral MCAs and distal branches are patent. The bilateral cervical ICA are patent. The bilateral PICA, intradural vertebral arteries, basilar artery, bilateral superior cerebellar arteries, and bilateral rubber roller grinder are patent. The dural venous sinuses are patent. The neck soft tissue structures show no significant abnormality. Visualized upper lung ambrosio are clear. Likely bone island involving the posterior aspect of the T3 vertebra. IMPRESSION: 1: Unremarkable CT scan of the brain. 2: Unremarkable CT angiogram of the [place] and neck. Results of this report were discussed with Dr. Urena via the telephone on 04/25/2021 at 1640 hours. Dictated by: Dictated on workstation # [id number] Dict: 04/25/21 1630 Trans: 04/25/21 1720 [id number] Interpreted by: CONSUELO GONZALEZ MD Electronically signed by: CONSUELO GONZALEZ MD 04/25/21 1720 Departure Impression Primary Impression: Lightheadedness Additional Impressions: Left-sided headache Neck pain Anxious mood Vision changes Disposition: 01 HOME, SELF-CARE Condition: Stable Departure-Patient Inst. Decision time for Depature: 17:05 Referrals: [facility] (PCP) Primary Care Physician BALISE RANDLE APRN (Family) Primary Care Physician Patient Instructions: Headache, Adult Add. Discharge Instructions: Drink plenty of clear liquids to stay well-hydrated. For your headache you may take ibuprofen up to 600 mg every 6 hours as needed and/or Tylenol (acetaminophen) up to 1000 mg every 6 hours as needed. For muscle tension in your neck you may use gentle heat and gentle stretching to help relax the muscles. Follow-up with your primary care provider soon as possible to discuss further evaluation or treatments. Call with any questions or concerns. Return to the ER if you have worsening symptoms especially if you develop any true weakness of your limbs, difficulty speaking, bowel or bladder control problems, or other significant neurologic changes. Follow-up with your professional soccer player as soon as possible regarding your intermittent vision changes. If you feel that your symptoms may be related to your Prozac, you may discontinue Prozac until you can discuss further with your primary care provider. All discharge instructions reviewed with patient and/or family. Voiced understanding. Copy Copies To 1: MICHAEL RILEY JOSHUA T MD Apr 25, 2021 17:08
[2021-04-25 17:15] VITALS: BP 134/94
== END 2021-04-25 17:15 | disposition home or self-care (01) ==
LOC: EDUNIT# 13:41 → ER 13:43
DX: R42 Dizziness and giddiness (principal); R51.9 Headache, unspecified; M54.2 Cervicalgia; F41.9 Anxiety disorder, unspecified; H53.9 Unspecified visual disturbance; F17.210 Nicotine dependence, cigarettes, uncomplicated
CPT/HCPCS: 36415; 70496; 70498; 84703; 93041

== ENCOUNTER 2021-10-29 12:25 | Emergency (ER) | payer MEDICAID ==
[~2021-10-29] VITALS: Ht 160 cm; Wt 82.8 kg
[2021-10-29 14:06] LABS: BASOPHILS % (AUTO) 0 % (0-10); EOSINOPHILS # (AUTO) 0.1 10^3/uL (0.0-0.3); EOSINOPHILS % (AUTO) 1 % (0-10); HEMATOCRIT 41 % (35-52); HEMOGLOBIN 13.5 g/dL (11.5-16.0); LYMPHOCYTES % (AUTO) 17 % (12-44); MEAN CORPUSCULAR HEMOGLOBIN 31 pg (25-34); MEAN CORPUSCULAR HGB CONC 33 g/dL (32-36); MEAN CORPUSCULAR VOLUME 93 fL (80-99); MEAN PLATELET VOLUME 9.4 fL (9.0-12.2); MONOCYTES # (AUTO) 0.5 10^3/uL (0.0-1.0); MONOCYTES % (AUTO) 8 % (0-12); NEUTROPHILS # (AUTO) 4.6 10^3/uL (1.8-7.8); NEUTROPHILS % (AUTO) 74 % (42-75); PLATELET COUNT 327 10^3/uL (130-400); WHITE BLOOD COUNT 6.2 10^3/uL (4.3-11.0)
[2021-10-29 14:10] LABS: ALBUMIN 4.5 GM/DL (3.2-4.5)
[2021-10-29 14:11] LABS: POTASSIUM 4.1 MMOL/L (3.6-5.0)
[2021-10-29 14:12] LABS: CALCIUM 9.8 MG/DL (8.5-10.1)
[2021-10-29 14:13] LABS: TOTAL PROTEIN 7.4 GM/DL (6.4-8.2)
[2021-10-29 14:15] LABS: BILIRUBIN,TOTAL 0.2 MG/DL (0.1-1.0)
[2021-10-29] MEDS ORDERED: D5 NS 1000 ML IV SOLUTION 1,000 ML IV ONE (14:15)
[2021-10-29 14:16] LABS: BILIRUBIN,URINE NEGATIVE (NEGATIVE); CLARITY,URINE CLEAR; COLOR,URINE YELLOW; GLUCOSE, URINE (UA) NEGATIVE (NEGATIVE); KETONES,URINE NEGATIVE (NEGATIVE); LEUKOCYTE ESTERASE ,URINE NEGATIVE (NEGATIVE); NITRITE,URINE NEGATIVE (NEGATIVE); PH,URINE 8.5 (5-9); PROTEIN,URINE NEGATIVE (NEGATIVE)
[2021-10-29 14:17] LABS: CREATININE SERUM 0.73 MG/DL (0.60-1.30)
[2021-10-29 14:24] LABS: BACTERIA,URINE NEGATIVE /HPF; SQUAMOUS EPITHELIAL CELL,UR RARE /HPF
[2021-10-29] MEDS ORDERED: ONDANSETRON 4 MG (ZOFRAN) ORAL DISSOLVE TAB SL STA (14:36)
--- NOTE | 2021-10-29 14:45 | Diagnostic Imaging Report ---
Indication: Chest pain, pressure, dizziness. Compared: 04/20/2021 Findings: Lungs are clear. No failure, effusion or pneumothorax. Impression: No acute-appearing abnormality. Dictated by: Dictated on workstation # [id number]
--- NOTE | 2021-10-29 14:54 | ED General ---
General Chief Complaint: Neurological Problems Stated Complaint: SEIZURE ACTIVITY,SOB Nursing Triage Note: Pt has a history of seizures. Reports last one was approx 2 months ago. Takes topamax. also reports chest pain, head pressure, and dizziness. Reports recent float trip to [facility]. History of Present Illness Date Seen by Provider: Oct 29, 2021 Time Seen by Provider: 13:10 Initial Comments 31 year old female reports history of seizures, uses Topamax. Didn't take it this weekend because she wanted to drink alcohol and use edibles while on a float trip. Spent excessive time outside, in 100 degree temps. Today she is nauseated and shakey. Denies seizures. Occasional left axillary pain, ear congestion, and cough. She is not vaccinated for COVID. Timing/Duration: 4-6 Hours Severity: Moderate Associated Systoms: Cough, Headaches, Loss of Appetite, Malaise, Nausea/Vomiting Allergies and Home Medications Allergies Coded Allergies: No Known Drug Allergies (Unverified , 09/23/08) Patient Home Medication List Home Medication List Reviewed: Yes Baloxavir Marboxil (Xofluza) 40 Mg Tablet, 40 MG PO ONCE Prescribed by: SLAVA COOK on 06/08/19 1716 Docusate Sodium (Docusate Sodium) 100 Mg Capsule, 100 MG PO BID Prescribed by: LEXY CRANE on 12/17/16 0753 Hydroxyzine Pamoate (Vistaril) 25 Mg Capsule, 25 MG PO Q6H PRN for anxiety Prescribed by: KLAUDIA CAGE on 12/18/20 0251 Ibuprofen (Ibuprofen) 800 Mg Tablet, 800 MG PO Q6H Prescribed by: LEXY CRANE on 12/17/16 0753 Ondansetron (Ondansetron Odt) 4 Mg Tab.rapdis, 4 MG PO Q8H Prescribed by: KLAUDIA CAGE on 01/08/21 1816 Ondansetron (Ondansetron Odt) 4 Mg Tab.rapdis, 4 MG PO Q6H PRN for LUIS SEA/VOMITING Prescribed by: LELA GUIDO on 10/29/21 1533 Oxycodone HCl/Acetaminophen (Oxycodone-Acetaminophen 10-325) 1 Each Tablet, 1-2 TAB PO Q4H PRN for PAIN Prescribed by: LEXY CRANE on 12/17/16 0753 Venlafaxine HCl (Venlafaxine HCl ER) 75 Mg Tab.er.24, 75 MG PO DAILY Prescribed by: SLAVA COOK on 04/02/20 1730 [ Vitamins] , DAILY, (Reported) Entered as Reported by: MARGARITA JONES on 05/20/15 1510 Review of Systems Review of Systems Constitutional: see HPI, malaise EENTM: see HPI Respiratory: no symptoms reported, see HPI, cough Cardiovascular: no symptoms reported, see HPI; No chest pain Gastrointestinal: see HPI; No abdominal pain; nausea, vomiting All Other Systems Reviewed Negative Unless Noted: Yes Past Lrwkzub-Zskfug-Yamzks Hx Patient Social History Tobacco Use?: Yes Tobacco type used: Cigarettes Smoking Status: Current Everyday Smoker Use of E-Cig and/or Vaping dev: No Substance type: Marijuana Alcohol Use?: Yes Alcohol type: Beer Alcohol Frequency: Several times a month Pt feels they are or have been: No Immunizations Up To Date Tetanus Booster (TDap): Unknown PED Vaccines UTD: Yes First/Initial COVID19 Vaccinat: DECLINED Second COVID19 Vaccination Odilon: DECLINED Third COVID19 Vaccination Date: DECLINED Seasonal Allergies Seasonal Allergies: No Past Medical History Surgery/Hospitalization HX: anxiety, ortho Surgeries: Yes (METAL PLATE IN SIDE OF JAW.) Respiratory: No Cardiac: No Neurological: Yes Headaches /Migraines Reproductive Disorders: No Genitourinary: No Gastrointestinal: Yes Gastroesophageal Reflux Musculoskeletal: No Endocrine: No HEENT: No Cancer: No Psychosocial: No Integumentary: No Blood Disorders: No Adverse Reaction/Blood Tranf: No Family Medical History Reviewed Nursing Family Hx Cervical cancer 19 MOTHER No Pertinent Family Hx Physical Exam Vital Signs Vital Signs - First Documented 10/29/21 10/29/21 13:10 15:50 Temp 36.6 Pulse 67 Resp 20 B/P (MAP) 138/93 (108) Pulse Ox 100 O2 Delivery Room Air Capillary Refill : Less Than 3 Seconds Height, Weight, BMI Height: 5'3.00" Weight: 130lbs. 4.0oz. 59.881878gb; 32.00 BMI Method:Stated General Appearance: WD/WN, Anxious HEENT: PERRL/EOMI, TMs Normal, Normal ENT Inspection, Pharynx Normal Neck: Full Range of Motion, Normal Inspection, Non Tender, Supple Respiratory: Chest Non Tender, Lungs Clear, Normal Breath Sounds, No Accessory Muscle Use Cardiovascular: Regular Rate, Rhythm, No Edema, No Murmur, Normal Peripheral Pulses Gastrointestinal: Normal Bowel Sounds, Non Tender, Soft Extremity: Normal Capillary Refill, Normal Inspection, Normal Range of Motion, Non Tender Neurologic/Psychiatric: Alert, Oriented x3, No Motor/Sensory Deficits, Normal Mood/Affect Skin: Normal Color, Warm/Dry Progress/Results/Core Measures Suspected Sepsis SIRS Temperature: Pulse: 67 Respiratory Rate: 20 Laboratory Tests 10/29/21 13:31: White Blood Count 6.2 Blood Pressure 138 /93 Mean: 108 Laboratory Tests 10/29/21 13:31: Creatinine 0.73, Platelet Count 327, Total Bilirubin 0.2 Results/Orders Lab Results Laboratory Tests Test 10/29/21 13:31 10/29/21 14:11 Range/Units White Blood Count 6.2 4.3-11.0 10^3/uL Red Blood Count 4.38 3.80-5.11 10^6/uL Hemoglobin 13.5 11.5-16.0 g/dL Hematocrit 41 35-52 % Mean Corpuscular Volume 93 80-99 fL Mean Corpuscular Hemoglobin 31 25-34 pg Mean Corpuscular Hemoglobin Concent 33 32-36 g/dL Red Cell Distribution Width 13.8 10.0-14.5 % Platelet Count 327 130-400 10^3/uL Mean Platelet Volume 9.4 9.0-12.2 fL Immature Granulocyte % (Auto) 0 % Neutrophils (%) (Auto) 74 42-75 % Lymphocytes (%) (Auto) 17 12-44 % Monocytes (%) (Auto) 8 0-12 % Eosinophils (%) (Auto) 1 0-10 % Basophils (%) (Auto) 0 0-10 % Neutrophils # (Auto) 4.6 1.8-7.8 10^3/uL Lymphocytes # (Auto) 1.0 1.0-4.0 10^3/uL Monocytes # (Auto) 0.5 0.0-1.0 10^3/uL Eosinophils # (Auto) 0.1 0.0-0.3 10^3/uL Basophils # (Auto) 0.0 0.0-0.1 10^3/uL Immature Granulocyte # (Auto) 0.0 0.0-0.1 10^3/uL Sodium Level 143 135-145 MMOL/L Potassium Level 4.1 3.6-5.0 MMOL/L Chloride Level 107 98-107 MMOL/L Carbon Dioxide Level 24 21-32 MMOL/L Anion Gap 12 5-14 MMOL/L Blood Urea Nitrogen 5 L 7-18 MG/DL Creatinine 0.73 0.60-1.30 MG/DL Estimat Glomerular Filtration Rate 112 BUN/Creatinine Ratio 7 Glucose Level 84 70-105 MG/DL Calcium Level 9.8 8.5-10.1 MG/DL Corrected Calcium 9.4 8.5-10.1 MG/DL Total Bilirubin 0.2 0.1-1.0 MG/DL Aspartate Amino Transf (AST/SGOT) 48 H 5-34 U/L Alanine Aminotransferase (ALT/SGPT) 28 0-55 U/L Alkaline Phosphatase 60 40-136 U/L Total Protein 7.4 6.4-8.2 GM/DL Albumin 4.5 3.2-4.5 GM/DL Urine Color YELLOW Urine Clarity CLEAR Urine pH 8.5 5-9 Urine Specific [place] 1.010 L 1.016-1.022 Urine Protein NEGATIVE NEGATIVE Urine Glucose (UA) NEGATIVE NEGATIVE Urine Ketones NEGATIVE NEGATIVE Urine Nitrite NEGATIVE NEGATIVE Urine Bilirubin NEGATIVE NEGATIVE Urine Urobilinogen 0.2 < = 1.0 MG/DL Urine Leukocyte Esterase NEGATIVE NEGATIVE Urine RBC (Auto) NEGATIVE NEGATIVE Urine RBC NONE /HPF Urine WBC NONE /HPF Urine Squamous Epithelial Cells RARE /HPF Urine Crystals NONE /LPF Urine Bacteria NEGATIVE /HPF Urine Casts NONE /LPF Urine Mucus NEGATIVE /LPF Urine Culture Indicated NO Urine Opiates Screen NEGATIVE NEGATIVE Urine Oxycodone Screen NEGATIVE NEGATIVE Urine Methadone Screen NEGATIVE NEGATIVE Urine Propoxyphene Screen NEGATIVE NEGATIVE Urine Barbiturates Screen NEGATIVE NEGATIVE Ur Tricyclic Antidepressants Screen NEGATIVE NEGATIVE Urine Phencyclidine Screen NEGATIVE NEGATIVE Urine Amphetamines Screen NEGATIVE NEGATIVE Urine Methamphetamines Screen NEGATIVE NEGATIVE Urine Benzodiazepines Screen NEGATIVE NEGATIVE Urine Cocaine Screen NEGATIVE NEGATIVE Urine Cannabinoids Screen NEGATIVE NEGATIVE My Orders Orders - LELA GUIDO Urine Bedside (10/29/21 14:01) Cbc With Automated Diff (10/29/21 14:01) Comprehensive Metabolic Panel (10/29/21 14:01) Ua Culture If Indicated (10/29/21 14:01) Ed Iv/Invasive Line Start (10/29/21 14:01) D5 Ns 1000 Ml Iv Solution (Dextrose 5%/0 (10/29/21 14:15) Chest 1 View, Ap/Pa Only (10/29/21 14:36) Ekg Tracing (10/29/21 14:36) Drug Screen Stat (Urine) (10/29/21 14:36) Ondansetron Oral Dissolve Tab (Zofran (10/29/21 14:36) Medications Given in ED Current Medications Medications Dose Ordered Sig/Mariluz Route Start Time Stop Time Status Last Admin Dose Admin Dextrose/Sodium Chloride 1,000 ml @ 0 mls/hr Q0M ONCE IV 10/29/21 14:15 10/29/21 14:16 DC 10/29/21 14:23 1,000 MLS/HR Vital Signs/I&O 10/29/21 10/29/21 13:10 15:50 Temp 36.6 Pulse 67 82 Resp 20 18 B/P (MAP) 138/93 (108) 129/82 Pulse Ox 100 98 O2 Delivery Room Air Capillary Refill : Less Than 3 Seconds Blood Pressure Mean: 108 Progress Note : Time: 13:10 Progress Note Patient seen and evaluated. Will give IV fluids, Zofran 8 mg IV and check labs. 1430 chest x-ray, EKG and labs all within normal limits. Patient reports impro vement in symptoms after receiving IV fluids and Zofran. Patient trying Pedialyte and ice chips. 1530 no nausea or vomiting after trying oral fluids. Discharge instructions and return precautions reviewed. Diagnostic Imaging Diagonstic Imaging: Xray Plain Films/CT/US/NM/MRI: chest Comments NAME: MAHI MCFARLAND [facility] REC#: [id number] PT STATUS: REG ER : 1990 PHYSICIAN: LELA GUIDO ADMIT DATE: 10/29/21/ER Draft Date of Exam:10/29/21 CHEST 1 VIEW, AP/PA ONLY Indication: Chest pain, pressure, dizziness. Compared: 04/20/2021 Findings: Lungs are clear. No failure, effusion or pneumothorax. Impression: No acute-appearing abnormality. Dictated on workstation # [id number] Dict: 10/29/21 1444 Trans: 10/29/21 1445 [facility] [id number] Interpreted by: CHRISTEL PRETTY Electronically signed by: Reviewed: Reviewed by Me Departure Impression Primary Impression: Dehydration Disposition: 01 HOME, SELF-CARE Condition: Stable Departure-Patient Inst. Decision time for Depature: 15:10 Referrals: [facility] (PCP) Primary Care Physician BLAISE RANDLE APRN (Family) Primary Care Physician Patient Instructions: Alcohol Intoxication ED, Seizures, Adult (DC) Add. Discharge Instructions: Increase water, Gatorade and Pedialyte intake. Resume all of your normal medications. Avoid using edibles or other marijuana products. Do not discontinue your seizure medication. Increase hydration if you have an excessive amount of alcohol or sun, heat exposure. Follow-up with your primary care provider if symptoms or not improving or wo rsen. Use the Zofran every 6-8 hours as needed for nausea and vomiting. Return to the emergency department for new, urgent healthcare needs. All discharge instructions reviewed with patient and/or family. Voiced understanding. Scripts Ondansetron (Ondansetron Odt) 4 Mg Tab.rapdis 4 MG PO Q6H PRN for NAUSEA/VOMITING, #8 TAB 0 Refills Prov: LELA GUIDO 10/29/21 LELA GUIDO Oct 29, 2021 14:54
[2021-10-29 15:24] LABS: AMPHETAMINE SCREEN, URINE NEGATIVE (NEGATIVE); BARBITURATE SCREEN URINE NEGATIVE (NEGATIVE); BENZODIAZEPINES SCREEN URINE NEGATIVE (NEGATIVE); CANNABINOID SCREEN, URINE NEGATIVE (NEGATIVE); COCAINE SCREEN URINE NEGATIVE (NEGATIVE); METHADONE STAT NEGATIVE (NEGATIVE); OPIATE SCREEN URINE NEGATIVE (NEGATIVE); OXYCODONE STAT NEGATIVE (NEGATIVE); PROPOXYPHENE STAT NEGATIVE (NEGATIVE); TRICYCLIC ANTIDEPRESSANTS SCRE NEGATIVE (NEGATIVE)
[2021-10-29] MEDS ORDERED: ONDA4TAB11 PO (15:33)
[2021-10-29 15:50] VITALS: BP 129/82
== END 2021-10-29 15:54 | disposition home or self-care (01) ==
LOC: EDUNIT# 12:25 → ER 12:27
DX: E86.0 Dehydration (principal); R56.9 Unspecified convulsions; T42.6X6A Underdosing of other antiepileptic and sedative-hypnotic drugs, initial encounter; F17.210 Nicotine dependence, cigarettes, uncomplicated; Z91.128 Patient's intentional underdosing of medication regimen for other reason; Z79.899 Other long term (current) drug therapy; Z28.310 Unvaccinated for COVID-19
CPT/HCPCS: 36415; 71045; 80053; 80306; 81000; 84703; 85025; 93005